=== PATIENT | female | born 1945 | race Caucasian/White ===

== ENCOUNTER 2018-06-08 10:08 | Inpatient (IN) | payer MEDICARE, OTHER ==
--- NOTE | 2018-06-08 11:11 | CT ---
CT BRAIN: 06/08/2018 PROVIDED CLINICAL HISTORY: Altered mental status. Slurred speech. COMPARISON: 07/14/2012 FINDINGS: The ventricular system appears normal in size and morphology. There is no evidence for intracranial hemorrhage or mass effect. Foci of diminished attenuation involving the cerebral white matter and po ns presumably reflect chronic microvascular ischemic change. The extracranial soft tissues and osseo us structures demonstrate no acute findings. IMPRESSION: No evidence for intracranial hemorrhage or mass effect. POS: ANNALEE
[2018-06-08 11:25] LABS: #Basophils 0.1 thou/uL (0.0-0.2); #Eosinphils 0.1 thou/uL (0.0-0.7); #Lymphocytes 2.1 thou/uL (1.20-3.40); #Monocytes 0.5 thou/uL (0.11-0.59); #Neutrophils 5.5 thou/uL (1.40-6.50); %Basophils 0.9 % (0.0-1.0); %Eosinophils 1.7 % (0.0-10.0); %Lymphocytes 25.2 % (21.0-51.0); %Monocytes 6.4 % (0.0-10.0); %Neutrophils 65.8 % (42.0-75.0); Hemoglobin 14.5 g/dL (12.0-16.0); Mean Corpuscular HGB CONC 32.4 g/dL (32.0-36.0); Mean Corpuscular Hemoglobin 29.4 pg (27.0-31.0); Mean Corpuscular Volume 90.7 fL (78.0-98.0); Mean Platelet Volume 11.6 fL (7.4-10.4); Platelet Count 142 thou/uL (130-400); RBC Distribution Width 13.2 % (11.5-14.5); Red Blood Cell (RBC) Count 4.94 mill/uL (4.20-5.40); White Blood Cell (WBC) Count 8.3 thou/uL (4.8-10.8)
[2018-06-08 11:45] LABS: Bilirubin Negative (Negative); Blood, Urine Negative (Negative); Clarity CLEAR (Clear); Glucose, Urine (Dipstick) >=1000 mg/dL (Negative); Leukocyte Negative (Negative); Nitrite Positive (Negative); Protein, Urine (Dipstick) Negative (Neg-Trace); Specific Gravity, Urine 1.029 (1.002-1.036); Urobilinogen 0.2 mg/dL (0.2-1.0)
[2018-06-08 11:47] LABS: Bacteria/HPF 4+ HPF (None Seen); Hyaline Casts/LPF 0-3 HYALINE CAST LPF (0-3 Hyaline); Pathc Cast-AUWi Flag 0.14 (0-2.49); Squamous Epithelial 0-3 HPF (0-3); WBC/HPF 0-3 HPF (0-3)
[2018-06-08 11:50] LABS: ALT (SGPT) 16 U/L (8-55); AST (SGOT) 14 U/L (5-34); Alkaline Phosphatase 79 U/L (40-150); Anion Gap 16 mmol/L (10-20); BUN (Urea Nitrogen) 10 mg/dL (9.8-20.1); Bilirubin, Total 0.4 mg/dL (0.2-1.2); Calc. Creatinine Clearance 0 mL/min (70-130); Calcium 10.7 mg/dL (7.8-10.44); Carbon Dioxide 21 mmol/L (23-31); Chloride 102 mmol/L (98-107); Estimated GFR-MDRD 59; Globulin 3.1 g/dL (2.4-3.5); Glucose 390 mg/dL (83-110); Potassium 4.4 mmol/L (3.5-5.1); Protein, Total 7.1 g/dL (6.0-8.3); Sodium 135 mmol/L (136-145)
[2018-06-08] MEDS ORDERED: cefTRIAXone\\ROCEPHIN 2 GM VIAL ONE (12:49)
[2018-06-08] MEDS ORDERED: Sodium Chloride 0.9% 100 ML ONE (12:50)
--- NOTE | 2018-06-08 18:15 | PDOC.EVN ---
Event Note - Event Note Event Note: Chart reviewed. Pt denies chest pain or weakness. Slurred speech improving. S1, S2 Lungs CTA Neuro: nonfocal except for slurred speech A/P: 1. CVA: w/u in progress
[2018-06-08] MEDS ORDERED: Ondansetron PF 4 MG/2 ML Vial IVP PRN (18:24)
[2018-06-08] MEDS ORDERED: Acetaminophen 650 MG Suppository PR PRN (18:24)
[2018-06-08] MEDS ORDERED: hydrALAZINE 20 MG/ML VIAL SLOW IVP PRN (18:26)
--- NOTE | 2018-06-08 19:47 | HP ---
CHIEF COMPLAINT: Slurred speech. HISTORY OF PRESENT ILLNESS AND REVIEW OF SYSTEMS: Ms. Cintron is a very pleasant 72-year-old woman, who was brought in by coworkers due to significantly slurred speech. It appears she has had slurred speech since Tuesday, June 05, 2018. However, it was significantly worse today. According to the patient, she did not wake up for work and was called by her coworkers, who instructed she needed to come in. According to her coworker who brought her in, the patient was at work and was witnessed to be off-balance when walking and with the slurred speech as mentioned above. The patient was not noted to have any facial drooping or weakness. No obvious unilateral extremity weakness. No complaints of any numbness on her face or anywhere else to her body. She denies experiencing any headaches. She has not had any nausea or vomiting. Denies any abdominal pain. Has not had any complaints of chest pain, palpitations, or shortness of breath. She has not had any recent fevers, chills, or night sweats. All other review of systems are negative. Upon arriving to the ED, she was noted to have significantly elevated blood pressure. Her glucose was raised at 443. She is not known to have a history of diabetes. She is known, however, to have high cholesterol and hypertension. However, the patient is noncompliant with medications. Her coworker brought in her home medications, which included a bottle of spironolactone that the patient has not been taking as well as a bottle of losartan, which is still sealed and has not been opened. It is unclear why she has not been taking her medications. Apparently, the spironolactone made her feel unwell at one point, and therefore she discontinued it on her own. She underwent a urinalysis, which showed positive nitrites, but negative ketones. Leukocyte esterase was negative, however, she had 4+ bacteria. She was started on antibiotics by Dr. Sullivan. She underwent a CT of the head, that showed no evidence for intracranial hemorrhage or mass effect. She is being admitted to the hospital for further workup and investigations including that of TIA and new onset diabetes as well as uncontrolled hypertension. PAST MEDICAL HISTORY: 1. Hypercholesterolemia. 2. Hypertension. PAST SURGICAL HISTORY: Tonsillectomy. FAMILY HISTORY: Noncontributory. SOCIAL HISTORY: The patient is normally fit and well. She functions independently. Works in a shelter. Denies any smoking or alcohol use. Denies any drug use. PHYSICAL EXAMINATION: VITAL SIGNS: Temperature 98.1, pulse 87, respirations 22, O2 saturation 97% on room air, and blood pressure 139/78. HEENT: Normocephalic and atraumatic. Pupils are equal, round, and reactive to light. Extraocular movements normal. No facial numbness or asymmetry. No tongue deviation. Facial movements normal. Speech slightly slurred, but no facial droop. NECK: Supple without lymphadenopathy. Full range of motion. Oropharynx is clear without any lesions, thrush, or ulcers. CARDIAC: Regular rate and rhythm. LUNGS: Clear to auscultation bilaterally. ABDOMEN: Soft, nontender, and nondistended with bowel sounds present. No renal angle tenderness. EXTREMITIES: No clubbing, cyanosis, or edema. Power 5/5 with sensation intact in all limbs. NEUROLOGIC: Alert and oriented x3. She does appear to be off, though not particularly confused. No cerebellar signs. No focal neurology. LABORATORY DATA: White blood count unremarkable. Sodium 135, potassium 4.4, BUN 10, creatinine 0.94, GFR 59, glucose 390, and calcium 10.7. LFTs unremarkable. TNI negative. IMAGING DATA: Brain CT, 06/08/2018. No evidence of intracranial hemorrhage or mass effect. Changes consistent with possibly chronic microvascular ischemic change. IMPRESSION AND PLAN: Ms. Cintron will be admitted to observation unit for workup and investigations for the following conditions. 1. Slurred speech. Possible transient ischemic attack. MRI of the brain requested as well as echocardiogram and carotid Doppler ultrasound. The patient is referred to neuro and stroke team. She will require a swallow assessment. Consult placed to Speech Therapy. She has been started on aspirin 81 mg and statin. 2. Hyperglycemia/possible new onset diabetes. Continue insulin sliding scale. Monitor glucose. 3. Hypertension. The patient is noncompliant with home medications. We will continue to monitor blood pressure, which is now improved. 4. Presumed urinary tract infection. The patient is started on antibiotics in the ED. Urinalysis was positive for nitrites and bacteria. Negative for ketones. Showed greater than 1000 glucose. We will continue antibiotics and await urine culture. 5. Gastrointestinal prophylaxis. 6. Venous thromboembolism prophylaxis with mechanical sequential compression devices. The patient's case was discussed with Dr. Moody, who agrees with the plan of care as described above. Job ID: [id number]
[2018-06-08] MEDS ORDERED: HumaLOG 300 UNITS/3 ML VIAL SC PRN (21:20)
[2018-06-08] MEDS ORDERED: Dextrose 50% Abboject 50 ML SYRINGE SLOW IVP PRN ×2 (21:20→21:21)
[2018-06-08] MEDS ORDERED: Dextrose 5% in Water 1,000 ML IV PRN ×2 (21:20→21:21)
--- NOTE | 2018-06-08 22:20 | ULT ---
CAROTID DUPLEX SONOGRAM: 06/08/18 HISTORY: TIA. Vascular disease. FINDINGS: RIGHT: Scattered plaque. Color and spectral doppler evaluation, peak systolic velocity of 76 cm/s, and IC to CC ratio of 1.2 suggests no hemodynamically significant stenosis within the extracranial right ICA. Antegrade flow within the vertebral artery. LEFT: Scattered plaque. Color and spectral doppler evaluation, peak systolic velocity of 89 cm/s, and IC to CC ratio of 1.1 suggests no hemodynamically significant stenosis within the extracranial left ICA. A ntegrade flow within the vertebral artery. IMPRESSION: Atherosclerosis. No sonographic evidence of significant extracranial ICA stenosis. POS: BST
[2018-06-09] MEDS: Sodium Chloride 0.9% 1,000 ML IV SCH ×2 (00:16→10:11)
[2018-06-09] MEDS: Atorvastatin Calcium 40 MG TAB PO SCH ×2 (00:17→23:05)
[2018-06-09] MEDS: Famotidine 20 MG TAB PO SCH ×3 (00:17→23:05)
[2018-06-09] MEDS: Famotidine/PF 20 mg/2ml Vial SLOW IVP SCH ×3 (00:29→23:05)
[2018-06-09 04:50] VITALS: BMI 32.9
[2018-06-09] MEDS: HumaLOG 300 UNITS/3 ML VIAL SC PRN ×3 (06:16→18:12)
[2018-06-09 06:59] LABS: ALT (SGPT) 17 U/L (8-55); AST (SGOT) 17 U/L (5-34); Albumin 3.7 g/dL (3.4-4.8); Alkaline Phosphatase 74 U/L (40-150); Anion Gap 16 mmol/L (10-20); BUN (Urea Nitrogen) 10 mg/dL (9.8-20.1); Bilirubin, Total 0.3 mg/dL (0.2-1.2); Calc. Creatinine Clearance 81 mL/min (70-130); Calcium 10.4 mg/dL (7.8-10.44); Carbon Dioxide 21 mmol/L (23-31); Cardiac Risk 7.1 (Less than 4.5); Chloride 103 mmol/L (98-107); Cholesterol 207 mg/dl (< 200 Desired); Estimated GFR-MDRD 70; Globulin 2.9 g/dL (2.4-3.5); Glucose 317 mg/dL (83-110); HDL Cholesterol 29 mg/dL (>60 Neg Risk); Protein, Total 6.6 g/dL (6.0-8.3); Sodium 136 mmol/L (136-145); Triglycerides 453 mg/dL (Less than 150)
[2018-06-09] MEDS ORDERED: Prevnar 13-Val Conj/PF 0.5 ML SYRINGE IM ONE (09:00)
[2018-06-09] MEDS ORDERED: Lorazepam 0.5 MG TAB PO ONE (09:20)
[2018-06-09 09:40] LABS: #Basophils 0.1 thou/uL (0.0-0.2); #Eosinphils 0.2 thou/uL (0.0-0.7); #Lymphocytes 2.3 thou/uL (1.20-3.40); #Monocytes 0.6 thou/uL (0.11-0.59); #Neutrophils 6.4 thou/uL (1.40-6.50); %Basophils 0.7 % (0.0-1.0); %Eosinophils 1.8 % (0.0-10.0); %Lymphocytes 23.7 % (21.0-51.0); %Monocytes 6.5 % (0.0-10.0); %Neutrophils 67.3 % (42.0-75.0); Mean Corpuscular HGB CONC 33.3 g/dL (32.0-36.0); Mean Corpuscular Hemoglobin 29.9 pg (27.0-31.0); Mean Corpuscular Volume 89.7 fL (78.0-98.0); Mean Platelet Volume 9.8 fL (7.4-10.4); Platelet Count 128 thou/uL (130-400); RBC Distribution Width 13.3 % (11.5-14.5); White Blood Cell (WBC) Count 7.7 thou/uL (4.8-10.8)
[2018-06-09] MEDS: Aspirin 81 mg Enteric Coated Tablet PO SCH (10:07)
[2018-06-09] MEDS ORDERED: Iopamidol 370 76% 100 ML VIAL ONE (10:09)
--- NOTE | 2018-06-09 11:40 | PDOC.PN ---
- Subjective Encounter Start Date: 06/09/18 Encounter Start Time: 09:15 Subjective: Patient without complaints. Still slurred speech. -: Alert and oriented. Refusing to sit up as already examed, per patient. -: Denies n/v. No headache. No dizziness. Denies any blurred vision. No CP/SOB - Objective Vital Signs & Weight: Vital Signs (12 hours) Temp Pulse Resp BP Pulse Ox 06/09/18 07:00 98.2 F 72 20 134/62 95 06/09/18 03:17 97.6 F 74 16 136/69 95 06/09/18 00:00 98.6 F 71 19 119/71 96 Weight Weight 179 lb 14.4 oz Result Diagrams: 06/09/18 09:18 06/09/18 06:21 Additional Labs: Accuchecks 06/09/18 06/09/18 07:29 05:44 POC Glucose 304 H 329 H Phys Exam - Physical Examination Constitutional: NAD HEENT: PERRLA, oral pharynx no lesions Neck: supple, full ROM Respiratory: clear to auscultation bilateral Cardiovascular: RRR Gastrointestinal: soft, non-tender, no distention, positive bowel sounds Musculoskeletal: no edema Neurological: normal sensation, moves all 4 limbs Psychiatric: A&O x 3 Skin: no rash, normal turgor Dx/Plan (1) TIA (transient ischemic attack) Code(s): G45.9 - TRANSIENT CEREBRAL ISCHEMIC ATTACK, UNSPECIFIED Status: Acute (2) Slurred speech Code(s): R47.81 - SLURRED SPEECH Status: Acute (3) Hyperglycemia Code(s): R73.9 - HYPERGLYCEMIA, UNSPECIFIED Status: Acute (4) Hypertension Code(s): I10 - ESSENTIAL (PRIMARY) HYPERTENSION Status: Chronic (5) Hyperlipidemia Code(s): E78.5 - HYPERLIPIDEMIA, UNSPECIFIED Status: Chronic - Plan cont current plan of care Patient awaiting MRI and Echo results. -: UCx: Presumptive E.Coli, awaiting sensitivities. Will start Rocephin -: Awaiting Neuro -: Metformin 500 mg BID. Monitor glucose. Continue sliding scale. Check HgbA1c -: Discussed with Dr. Dumont who agrees with plan above. ADDENDUM: MRI Brain: Showed acute lacunar ischemia of brainstem. Dr. Solis has seen patient and aware. CTA Head has been requested.
--- NOTE | 2018-06-09 12:31 | MRI ---
MRI BRAIN NONCONTRAST: DATE: 06/09/2018. HISTORY: A 72-year-old female with TIA, dysarthria. COMPARISON: No prior brain MRIs. FINDINGS: There is an approximately 0.9 x 0.6 cm moderately T2 hyperintense intraaxial focus, with strongly res tricted diffusion, in the midbrain, at midline and slightly to the right of midline, representing an acute lacunar infarction of the brainstem. Ventricles are normal in size and configuration. No mass effect or midline shift. Mild to moderate chronic ischemic white matter changes of centrum semiovale and arteaga radiata, and eileen. No evidence of recent intraaxial hemorrhage. No extraaxial fluid collection. IMPRESSION: 1. Brainstem acute lacunar infarction at the midbrain. 2. Mild to moderate chronic ischemic white matter changes. SALVADOR Johnson POS: FAITH
--- NOTE | 2018-06-09 16:36 | CT ---
NONCONTRAST HEAD CT CT ANGIOGRAM OF THE HEAD CT ANGIOGRAM OF THE NECK 06/09/18 HISTORY: Acute lacunar infarct in the brainstem, mid brain. COMPARISON: None. TECHNIQUE: Noncontrast head CT is performed from skull base to skull vertex. CT angiogram of the head and neck a re performed in the axial plane. Three dimensional reformatted images are submitted for interpretatio n. FINDINGS: NONCONTRAST HEAD CT: No parenchymal hemorrhage. No extra-axial hematoma. No midline shift. Basilar cisterns are patent. Br ain volume, age appropriate. Cortical celis-white matter differentiation is preserved. No evidence of hydrocephalus. Note is made of hyperostosis frontalis interna. There is no pathologic enhancement in the brain parenchyma. Bilateral ocular lenses are appropriately located. Both globes are intact. Retrobulbar fat is preserv ed. Symmetric attenuation of the optic nerves and ocular rectus muscles. Limited evaluation of the or al cavity due to dental amalgam artifact. Midline fatty raphae of the tongue is preserved. Epiglottis has a normal caliber. Pre-epiglottic fat is preserved. There is a hyperdense lesion in the superficial aspect in the right parotid gland, measuring 1.8 x 1. 3 cm. Intraparotid lesion is suspected. Nonemergent soft tissue neck MRI with and without contrast is recommended. The left parotid gland and submandibular glands as well as the thyroid gland are unrema rkable. Symmetric attenuation of the sternocleidomastoid muscles. There are scattered nonspecific, nonenlarge d mild lateral soft tissue neck lymph nodes. No evidence of high grade central canal stenosis or high grade foraminal narrowing. Cervical spine ve rtebral body height is maintained. No fracture. There appears to be a hemangioma associated with a T1 vertebral body. Upper mediastinum and lung apices are unremarkable for acute pathology. Nonspecific patchy opacities in the visualized lung apices may represent edema. CT ANGIOGRAM: The visualized aortic arch has an appropriate enhancement and luminal diameter. There is a common bridget gin of both carotid arteries. The right carotid artery has appropriate enhancement and luminal diamet er. No significant stenosis based upon NASCET criteria. The left carotid artery has appropriate enhan cement and luminal diameter. No significant stenosis based upon NASCET criteria. Both vertebral arteries are patent throughout their course in the neck. Vertebral arteries are essent ially codominant. Both subclavian arteries are patent. CT ANGIOGRAM OF THE HEAD: There is atherosclerosis involving both cavernous segments. No significant stenosis of either intracr anial internal carotid artery. ANTERIOR CIRCULATION: There is appropriate enhancement and luminal diameter of both A1 and M1 segments. Proximal A2 segment s and proximal MCA branches are symmetric. POSTERIOR CIRCULATION: Both intracranial vertebral arteries are patent. Both vertebral arteries supply normal appearing basi lar artery. The left P1 segment has appropriate enhancement and luminal diameter. The right POLISHER DIAL has a origin. No stenosis. IMPRESSION: 1. No evidence of hemodynamically significant stenosis based upon NASCET criteria, with regards to the cervical carotid arteries. 2. No significant stenosis at the level of the [place] of [place]. POS: FAITH
[2018-06-09] MEDS: metFORMIN 500 MG TAB PO SCH (18:12)
[2018-06-09] MEDS: cefTRIAXone\\ROCEPHIN 1 GM in Sodium Chloride 0.9% 100 ML IVPB SCH (18:12)
[2018-06-10] MEDS: Sodium Chloride 0.9% 1,000 ML IV SCH ×2 (01:01→05:10)
--- NOTE | 2018-06-10 02:08 | CON ---
DATE OF CONSULTATION: 06/09/2018 CHIEF COMPLAINT: Slurred speech. HISTORY OF PRESENT ILLNESS: The patient was in the room and her friend from work was also with her and was able to give some information. The patient reports she was in her usual state of health and is very active normally and she was told her speech was slurred and she has had these symptoms starting about two days ago and she presented to the ER yesterday for slurred speech. On Tuesday, one of her co-workers noted that she had slurred speech and on she was running late to work and they called her and told her that her speech sounded worse and they asked her to go to the ER. The patient did not have any symptoms such as weakness or numbness. Last time she had any neurological issues was vision problems since then and also during , she has had dizziness. She attributes her vision problems to cataracts and is planning to get those removed soon. PREVIOUS MEDICAL HISTORY: The patient reports she is quite healthy normally and has hyperlipidemia and hypertension and was recently thought to have had diabetes, but no confirmed history of diabetes. ALLERGIES: SHE IS ALLERGIC TO PENICILLIN. PREVIOUS SURGICAL HISTORY: She has had a tonsillectomy and that is the only surgery she ever had. FAMILY HISTORY: She has 4 brothers. Mother at age 85 due to old age. Father at 63 and he was a smoker and had COPD. 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 REVIEW OF SYSTEMS: PULMONARY: Negative for shortness of breath. GI: Negative for diarrhea or reflux or stomach pain. GENITOURINARY: Negative for bladder dysfunction. NEUROLOGIC: Positive for slurred speech and dizziness. HEMATOLOGIC: Negative for any bleeding diatheses. PSYCHIATRIC: Negative for anxiety or depression. CARDIAC: Negative for chest pain or palpitations. LABORATORY DATA: Her lab workup showed white count 7.7, hemoglobin 14, hematocrit 42.1, platelets 128. Chemistry: Sodium 136, potassium 4, chloride 103, bicarb 21, anion gap 16, BUN 10, creatinine 0.81, glucose 238, triglycerides 453, cholesterol 207, alkaline phosphatase 74, ALT 17, AST 17, and total bilirubin is 10.4. MRI of the brain showed a brainstem acute lacunar infarction at the midbrain at the midline and slightly to the right of midline. She also has moderate chronic white matter ischemic changes. I requested a CT angiogram and a CT angiogram was completed and there was no evidence of hemodynamically significant stenosis based on NASCET criteria. No stenosis at the level of the elem of [place]. No intracranial abnormalities either. Echocardiogram showed ejection fraction is at 50-60 percent and normal size of left atrium. The ejection fraction is 55-60 percent. Normal-sized left atrium. Carotid Dopplers were negative for any stenotic lesions. PHYSICAL EXAMINATION: VITAL SIGNS: Blood pressure 134/62, temperature 98.2, pulse 72. GENERAL APPEARANCE: Well-built, well-nourished lady, slightly overweight. CHEST: Clear vesicular breathing. CARDIOVASCULAR: S1, S2 heard. No murmurs. ABDOMEN: Soft, nontender. No organomegaly noted. NEUROLOGIC: Higher intellectual functions, appropriate conversation. She is oriented to time, place, and person. Cranial nerve examination, 2-12 normal extraocular movements. Pupils reactive to light and symmetric. Normal sensation of face bilaterally. No facial asymmetry noted. Tongue midline. No atrophy noted. Normal elevation of palate. Normal hearing to finger rub bilaterally. Motor examination; bulk normal tone, normal strength 5/5 throughout in upper and lower extremities in iliopsoas, hamstrings, quadriceps, ankle dorsiflexion, plantar flexion, deltoid, biceps, triceps, wrist extension, flexion, finger extension, flexion bilaterally. Deep tendon reflexes were 1+ throughout, but the patient was tensed. Sensory exam normal to touch and proprioception. Cerebellar; normal [id number], [id number]. Gait examination, she limps with her left leg and reported problems with her left knee. She had slightly wide-based gait. IMPRESSION: The patient is a 72-year-old lady with hypertension, hypercholesterolemia, and she was not on aspirin at home on a regular basis and she was also diagnosed this admission with hyperglycemia and possible early diabetes. She comes in with a history of slurred speech and no motor dysfunction or numbness. She has vision problems due to cataracts. Her examination shows limping of her gait and slightly wide-based gait. Rest of her neurological exam is normal. She has very mild slurred speech. Clinical history and examination is most consistent with dysarthria due to possibly resulting from the brainstem ischemia. I requested CT angiogram, which did not show any vaso-occlusive disease of the central nervous system. At this time, she remains stable. TREATMENT PLAN AND RECOMMENDATION: I suggest that she be on aspirin and statin on a daily basis for stroke prophylaxis. I will see her as needed. At this time, I do think if she remains stable and her hyperglycemia is corrected, she is stable from a neurological standpoint for discharge over the weekend. Please call, if you have any further questions. Job ID: [id number]
[2018-06-10] MEDS: HumaLOG 300 UNITS/3 ML VIAL SC PRN ×3 (05:18→12:19)
[2018-06-10 05:33] LABS: #Eosinphils 0.2 thou/uL (0.0-0.7); #Lymphocytes 2.3 thou/uL (1.20-3.40); #Monocytes 0.5 thou/uL (0.11-0.59); #Neutrophils 5.4 thou/uL (1.40-6.50); %Basophils 0.2 % (0.0-1.0); %Eosinophils 1.8 % (0.0-10.0); %Lymphocytes 26.9 % (21.0-51.0); %Monocytes 6.4 % (0.0-10.0); %Neutrophils 64.6 % (42.0-75.0); Mean Corpuscular Hemoglobin 29.9 pg (27.0-31.0); Mean Corpuscular Volume 90.6 fL (78.0-98.0); Mean Platelet Volume 11.8 fL (7.4-10.4); Platelet Count 122 thou/uL (130-400); RBC Distribution Width 13.3 % (11.5-14.5); Red Blood Cell (RBC) Count 4.36 mill/uL (4.20-5.40); White Blood Cell (WBC) Count 8.4 thou/uL (4.8-10.8)
[2018-06-10 05:37] LABS: Hemoglobin A1c 13.3 % (4.0-6.0)
[2018-06-10 05:53] LABS: ALT (SGPT) 14 U/L (8-55); AST (SGOT) 10 U/L (5-34); Albumin 3.5 g/dL (3.4-4.8); Alkaline Phosphatase 68 U/L (40-150); Anion Gap 14 mmol/L (10-20); BUN (Urea Nitrogen) 9 mg/dL (9.8-20.1); Bilirubin, Total 0.5 mg/dL (0.2-1.2); Calc. Creatinine Clearance 90 mL/min (70-130); Carbon Dioxide 21 mmol/L (23-31); Chloride 107 mmol/L (98-107); Estimated GFR-MDRD 78; Globulin 2.7 g/dL (2.4-3.5); Glucose 263 mg/dL (83-110); Potassium 3.9 mmol/L (3.5-5.1); Protein, Total 6.2 g/dL (6.0-8.3); Sodium 138 mmol/L (136-145)
[2018-06-10] MEDS: metFORMIN 500 MG TAB PO SCH ×2 (09:06→17:43)
[2018-06-10] MEDS: Famotidine 20 MG TAB PO SCH ×2 (09:06→20:35)
[2018-06-10] MEDS: Aspirin 81 mg Enteric Coated Tablet PO SCH (09:06)
[2018-06-10] MEDS: Famotidine/PF 20 mg/2ml Vial SLOW IVP SCH ×2 (09:07→20:35)
--- NOTE | 2018-06-10 14:48 | PDOC.EVN ---
Event Note - Event Note Event Note: Long discussion with the patient, her family and friends. Discussed the stroke diagnosis, dm, htn. Discussed PT recs. She is getting better, but continues to have some dysarthria. She is now completely willing to go to [facility] as recommended. She now understands the need for managing her diet and monitoring her blood sugars and blood pressure. Explained that the BP and DM need to be managed over time with compliance with meds and diet and follow up with PCP. All of her questions and her families questions were addressed. Reviewed with Rachelle Johnson.
[2018-06-10] MEDS: cefTRIAXone\\ROCEPHIN 1 GM in Sodium Chloride 0.9% 100 ML IVPB SCH (17:43)
--- NOTE | 2018-06-10 18:37 | PDOC.PN ---
- Subjective Encounter Start Date: 06/10/18 Encounter Start Time: 08:24 Subjective: Patient continues with abnormal speech. Denies any complaints. -: No headaches, dizziness. Has not had any CP/SOB. No n/v. -: Tolerating oral intake. No abdominal pain. Afebrile. - Objective Vital Signs & Weight: Vital Signs (12 hours) Temp Pulse Pulse Resp BP BP Pulse Ox 06/10/18 16:00 99.0 F 71 20 106/76 94 L 06/10/18 11:50 75 126/85 06/10/18 11:22 98.3 F 75 20 133/81 96 06/10/18 07:56 98.4 F 65 18 92/55 L 94 L Weight Weight 179 lb 14.4 oz I&O: 06/09/18 06/10/18 06/11/18 06:59 06:59 06:59 Intake Total 1706 2570 Balance 1706 2570 Result Diagrams: 06/10/18 05:21 06/10/18 05:21 Additional Labs: Accuchecks 06/10/18 06/10/18 06/10/18 16:45 11:15 08:05 POC Glucose 140 H 262 H 239 H 06/10/18 06/10/18 06/09/18 05:18 01:12 23:16 POC Glucose 253 H 234 H 218 H Phys Exam - Physical Examination Constitutional: NAD HEENT: PERRLA, moist MMs, sclera anicteric, oral pharynx no lesions Neck: no nodes, supple, full ROM Respiratory: clear to auscultation bilateral Cardiovascular: RRR Gastrointestinal: soft, non-tender, no distention, positive bowel sounds Musculoskeletal: no edema, pulses present Neurological: normal sensation, moves all 4 limbs Psychiatric: A&O x 3 Skin: no rash Dx/Plan (1) TIA (transient ischemic attack) Code(s): G45.9 - TRANSIENT CEREBRAL ISCHEMIC ATTACK, UNSPECIFIED Status: Acute (2) Slurred speech Code(s): R47.81 - SLURRED SPEECH Status: Acute (3) Hyperglycemia Code(s): R73.9 - HYPERGLYCEMIA, UNSPECIFIED Status: Acute (4) Hypertension Code(s): I10 - ESSENTIAL (PRIMARY) HYPERTENSION Status: Chronic (5) Hyperlipidemia Code(s): E78.5 - HYPERLIPIDEMIA, UNSPECIFIED Status: Chronic - Plan cont current plan of care, plan discussed w/ family, continue antibiotics, PT/OT Receiving Rocephin for UTI (e.coli-pansensitive). -: Will change to PO Levaquin. -: Metformin 500 mg BID for new onset diabetes. Monitor glucose QACHS. -: Continue anti-hypertensives. Monitor BP. -: Rehab screening requested. * .
[2018-06-10] MEDS: Atorvastatin Calcium 40 MG TAB PO SCH (20:35)
[2018-06-11 05:43] LABS: ALT (SGPT) 16 U/L (8-55); AST (SGOT) 13 U/L (5-34); Albumin 3.4 g/dL (3.4-4.8); Alkaline Phosphatase 52 U/L (40-150); Anion Gap 14 mmol/L (10-20); BUN (Urea Nitrogen) 7 mg/dL (9.8-20.1); Bilirubin, Total 0.4 mg/dL (0.2-1.2); Calc. Creatinine Clearance 94 mL/min (70-130); Calcium 9.7 mg/dL (7.8-10.44); Carbon Dioxide 19 mmol/L (23-31); Chloride 109 mmol/L (98-107); Estimated GFR-MDRD 82; Globulin 2.5 g/dL (2.4-3.5); Glucose 200 mg/dL (83-110); Potassium 3.8 mmol/L (3.5-5.1); Protein, Total 5.9 g/dL (6.0-8.3); Sodium 138 mmol/L (136-145)
[2018-06-11] MEDS: HumaLOG 300 UNITS/3 ML VIAL SC PRN ×2 (06:12→12:51)
[2018-06-11 06:28] LABS: #Eosinphils 0.2 thou/uL (0.0-0.7); #Lymphocytes 2.9 thou/uL (1.20-3.40); #Monocytes 0.4 thou/uL (0.11-0.59); #Neutrophils 3.7 thou/uL (1.40-6.50); %Basophils 0.3 % (0.0-1.0); %Eosinophils 2.9 % (0.0-10.0); %Lymphocytes 39.7 % (21.0-51.0); %Monocytes 5.9 % (0.0-10.0); %Neutrophils 51.2 % (42.0-75.0); Hemoglobin 12.9 g/dL (12.0-16.0); Mean Corpuscular HGB CONC 33.3 g/dL (32.0-36.0); Mean Corpuscular Hemoglobin 30.9 pg (27.0-31.0); Mean Corpuscular Volume 92.8 fL (78.0-98.0); Mean Platelet Volume 11.8 fL (7.4-10.4); Platelet Count 110 thou/uL (130-400); RBC Distribution Width 13.1 % (11.5-14.5); Red Blood Cell (RBC) Count 4.18 mill/uL (4.20-5.40); White Blood Cell (WBC) Count 7.3 thou/uL (4.8-10.8)
[2018-06-11] MEDS: Aspirin 81 mg Enteric Coated Tablet PO SCH (09:12)
[2018-06-11] MEDS: Famotidine/PF 20 mg/2ml Vial SLOW IVP SCH (09:12)
[2018-06-11] MEDS: Famotidine 20 MG TAB PO SCH ×2 (09:12→21:17)
[2018-06-11] MEDS: metFORMIN 500 MG TAB PO SCH ×2 (09:12→18:03)
[2018-06-11] MEDS ORDERED: Melatonin 3 MG TAB PO PRN (13:08)
[2018-06-11] MEDS: Atorvastatin Calcium 40 MG TAB PO SCH (21:17)
[2018-06-11] MEDS: Insulin Glargine 5 UNITS in Pre-Filled Syringe SC SCH (21:17)
[2018-06-12] MEDS: HumaLOG 300 UNITS/3 ML VIAL SC PRN ×2 (05:15→11:48)
[2018-06-12] MEDS: Ondansetron ODT 4 MG TAB PO PRN ×2 (06:10→11:48)
--- NOTE | 2018-06-12 07:24 | PDOC.PN ---
- Subjective Encounter Start Date: 06/12/18 Encounter Start Time: 08:30 Subjective: Patient without complaints. Slurred speech persistent. She thinks she is -: walking ok, but per PT and her family she is unsteady on feet. Needs rehab -: and patient agreeable. - Objective MAR Reviewed: Yes Vital Signs & Weight: Vital Signs (12 hours) Temp Pulse Resp BP Pulse Ox 06/12/18 04:00 98.1 F 70 18 123/51 L 99 06/11/18 20:50 95 06/11/18 20:00 99.0 F 73 18 111/63 95 Weight Weight 179 lb 14.4 oz I&O: 06/11/18 06/12/18 06/13/18 06:59 06:59 06:59 Intake Total 2930 550 Balance 2930 550 Result Diagrams: 06/11/18 05:01 06/11/18 05:01 Additional Labs: Accuchecks 06/12/18 06/11/18 06/11/18 05:14 21:14 16:46 POC Glucose 190 H 161 H 100 06/11/18 11:08 POC Glucose 227 H Phys Exam - Physical Examination Constitutional: NAD HEENT: moist MMs Respiratory: no wheezing, no rales, no rhonchi Cardiovascular: RRR, no significant murmur Gastrointestinal: soft, positive bowel sounds Musculoskeletal: no edema Neurological: moves all 4 limbs Psychiatric: normal affect, A&O x 3 Dx/Plan (1) Brainstem stroke Code(s): I63.9 - CEREBRAL INFARCTION, UNSPECIFIED Status: Acute Comment: Positive MRI, on ASA, Statin (2) Diabetes mellitus type 2 in obese Code(s): E11.69 - TYPE 2 DIABETES MELLITUS WITH OTHER SPECIFIED COMPLICATION; E66.9 - OBESITY, UNSPECIFIED Status: Acute Comment: New Dx, HbA1c 13, started on Metformin with BS in 100-200 currently. Patient with upset stomach since started. Will decrease Metformin to daily for first week until tolerating it better. Start sulfonourea. (3) Hyperlipidemia Code(s): E78.5 - HYPERLIPIDEMIA, UNSPECIFIED Status: Chronic Comment: on statin (4) Hypertension Code(s): I10 - ESSENTIAL (PRIMARY) HYPERTENSION Status: Chronic Qualifiers: Hypertension type: essential hypertension Qualified Code(s): I10 - Essential (primary) hypertension Comment: well controlled (5) UTI (urinary tract infection) Status: Acute Qualifiers: Urinary tract infection type: acute cystitis Comment: UCx with pansensitive E. coli. On Levaquin. - Plan cont current plan of care, continue antibiotics, PT/OT rehab screen * . - Discharge Day Encounter end time: 08:40
[2018-06-12] MEDS: Aspirin 81 mg Enteric Coated Tablet PO SCH (08:18)
[2018-06-12] MEDS: metFORMIN 500 MG TAB PO SCH (08:18)
[2018-06-12] MEDS: Famotidine 20 MG TAB PO SCH ×2 (08:19→22:12)
[2018-06-12] MEDS: Acetaminophen 325 MG TAB PO PRN (08:19)
[2018-06-12] MEDS: Atorvastatin Calcium 40 MG TAB PO SCH (22:12)
[2018-06-12] MEDS: Insulin Glargine 5 UNITS in Pre-Filled Syringe SC SCH (22:12)
--- NOTE | 2018-06-13 07:14 | PDOC.PN ---
- Subjective Encounter Start Date: 06/13/18 Encounter Start Time: 09:40 Subjective: No changes, persistent slurred speech. Awaiting insurance auth for -: rehab. - Objective MAR Reviewed: Yes Vital Signs & Weight: Vital Signs (12 hours) Temp Pulse Resp BP Pulse Ox 06/13/18 04:00 98.3 F 68 19 130/72 95 06/13/18 00:00 99.1 F 66 19 112/57 L 94 L 06/12/18 20:00 98.0 F 66 19 107/66 94 L Weight Weight 179 lb 14.4 oz I&O: 06/12/18 06/13/18 06/14/18 06:59 06:59 06:59 Intake Total 550 360 Balance 550 360 Result Diagrams: 06/11/18 05:01 06/11/18 05:01 Additional Labs: Accuchecks 06/13/18 06/12/18 06/12/18 05:50 20:12 16:39 POC Glucose 166 H 151 H 138 H 06/12/18 11:10 POC Glucose 205 H Phys Exam - Physical Examination Constitutional: NAD HEENT: moist MMs Respiratory: no wheezing, no rales, no rhonchi Cardiovascular: RRR, no significant murmur Gastrointestinal: soft, positive bowel sounds Musculoskeletal: no edema Neurological: non-focal Psychiatric: normal affect, A&O x 3 Dx/Plan (1) Brainstem stroke Code(s): I63.9 - CEREBRAL INFARCTION, UNSPECIFIED Status: Acute Comment: Positive MRI, on ASA, Statin (2) Diabetes mellitus type 2 in obese Code(s): E11.69 - TYPE 2 DIABETES MELLITUS WITH OTHER SPECIFIED COMPLICATION; E66.9 - OBESITY, UNSPECIFIED Status: Acute Comment: New Dx, HbA1c 13, started on Metformin with BS in 100-200 currently. Patient with upset stomach since started. Will decrease Metformin to daily for first week until tolerating it better. Start sulfonourea. (3) Hyperlipidemia Code(s): E78.5 - HYPERLIPIDEMIA, UNSPECIFIED Status: Chronic Comment: on statin (4) Hypertension Code(s): I10 - ESSENTIAL (PRIMARY) HYPERTENSION Status: Chronic Qualifiers: Hypertension type: essential hypertension Qualified Code(s): I10 - Essential (primary) hypertension Comment: well controlled (5) UTI (urinary tract infection) Status: Acute Qualifiers: Urinary tract infection type: acute cystitis Comment: UCx with pansensitive E. coli. On Levaquin. - Plan cont current plan of care, PT/OT Awaiting insurance approval for inpatient rehab * . - Discharge Day Encounter end time: 09:50
[2018-06-13] MEDS ORDERED: metFORMIN 500 MG TAB PO SCH (08:00)
[2018-06-13] MEDS: Aspirin 81 mg Enteric Coated Tablet PO SCH (09:28)
[2018-06-13] MEDS: Famotidine 20 MG TAB PO SCH ×2 (09:28→21:55)
[2018-06-13] MEDS: HumaLOG 300 UNITS/3 ML VIAL SC PRN (12:34)
[2018-06-13] MEDS: Insulin Glargine 5 UNITS in Pre-Filled Syringe SC SCH (21:55)
[2018-06-13] MEDS: Atorvastatin Calcium 40 MG TAB PO SCH (21:55)
[2018-06-13] MEDS: Ondansetron ODT 4 MG TAB PO PRN (21:55)
[2018-06-14] MEDS: Acetaminophen 325 MG TAB PO PRN ×2 (00:33→11:27)
--- NOTE | 2018-06-14 07:54 | PDOC.PN ---
- Subjective Encounter Start Date: 06/14/18 Encounter Start Time: 08:50 Subjective: Patient with continued leg pain at night. Upset stomach persisting yesterda -: so had to completely stop the Metforming. - Objective MAR Reviewed: Yes Vital Signs & Weight: Vital Signs (12 hours) Temp Pulse Resp BP Pulse Ox 06/14/18 04:00 98.1 F 76 20 109/57 L 94 L 06/14/18 00:00 99.3 F 73 19 133/69 94 L 06/13/18 20:00 97.7 F 64 18 111/65 92 L Weight Weight 179 lb 14.4 oz I&O: 06/13/18 06/14/18 06/15/18 06:59 06:59 06:59 Intake Total 360 580 Balance 360 580 Result Diagrams: 06/11/18 05:01 06/11/18 05:01 Additional Labs: Accuchecks 06/14/18 06/13/18 06/13/18 06:16 20:05 17:05 POC Glucose 123 H 126 H 120 H 06/13/18 10:37 POC Glucose 205 H Phys Exam - Physical Examination Constitutional: NAD HEENT: moist MMs Respiratory: no wheezing, no rales, no rhonchi Cardiovascular: RRR, no significant murmur Gastrointestinal: soft, positive bowel sounds Musculoskeletal: no edema slurred speech a little better this AM Psychiatric: normal affect, A&O x 3 Dx/Plan (1) Brainstem stroke Code(s): I63.9 - CEREBRAL INFARCTION, UNSPECIFIED Status: Acute Comment: Positive MRI, on ASA, Statin (2) Diabetes mellitus type 2 in obese Code(s): E11.69 - TYPE 2 DIABETES MELLITUS WITH OTHER SPECIFIED COMPLICATION; E66.9 - OBESITY, UNSPECIFIED Status: Acute Comment: New Dx, HbA1c 13, started on Metformin with BS in 100-200 currently. Patient with upset stomach since started. Metformin had to be d/c'd completely. Start sulfonourea. (3) Hyperlipidemia Code(s): E78.5 - HYPERLIPIDEMIA, UNSPECIFIED Status: Chronic Comment: on statin (4) Hypertension Code(s): I10 - ESSENTIAL (PRIMARY) HYPERTENSION Status: Chronic Qualifiers: Hypertension type: essential hypertension Qualified Code(s): I10 - Essential (primary) hypertension Comment: well controlled (5) UTI (urinary tract infection) Status: Acute Qualifiers: Urinary tract infection type: acute cystitis Comment: UCx with pansensitive E. coli. On Levaquin. (6) Leg pain, bilateral Code(s): M79.604 - PAIN IN RIGHT LEG; M79.605 - PAIN IN LEFT LEG Status: Acute Comment: likely diabetic neuropathy vs. stroke effect, will try dose of Gabapentin before bed - Plan cont current plan of care, PT/OT, DVT proph w/SCDs Awaiting rehab, FMLA paperwork filled out. * . - Discharge Day Encounter end time: 09:00
[2018-06-14] MEDS: Famotidine 20 MG TAB PO SCH ×2 (08:34→21:12)
[2018-06-14] MEDS: Aspirin 81 mg Enteric Coated Tablet PO SCH (08:35)
[2018-06-14] MEDS: HumaLOG 300 UNITS/3 ML VIAL SC PRN (11:27)
[2018-06-14] MEDS ORDERED: Gabapentin 300 MG CAP PO SCH (21:00)
[2018-06-14] MEDS: Insulin Glargine 5 UNITS in Pre-Filled Syringe SC SCH (21:11)
[2018-06-14] MEDS: Atorvastatin Calcium 40 MG TAB PO SCH (21:12)
--- NOTE | 2018-06-15 07:55 | PDOC.PN ---
- Subjective Encounter Start Date: 06/15/18 Encounter Start Time: 09:40 Subjective: Patient with some labile mood today. Was happy early in AM, family left -: room and returned in 15 min and she was worrying about job, crying. - Objective MAR Reviewed: Yes Vital Signs & Weight: Vital Signs (12 hours) Temp Pulse Resp BP Pulse Ox 06/15/18 07:47 98.6 F 64 18 115/56 L 94 L 06/15/18 04:00 97.5 F L 60 19 110/56 L 94 L 06/15/18 00:00 98.4 F 76 20 125/62 95 06/14/18 20:00 98.0 F 65 19 101/57 L 96 Weight Weight 179 lb 14.4 oz I&O: 06/14/18 06/15/18 06/16/18 06:59 06:59 06:59 Intake Total 580 650 Balance 580 650 Result Diagrams: 06/11/18 05:01 06/11/18 05:01 Additional Labs: Accuchecks 06/15/18 06/14/18 06/14/18 05:51 19:46 16:40 POC Glucose 141 H 118 H 146 H 06/14/18 10:43 POC Glucose 216 H Phys Exam - Physical Examination Constitutional: NAD HEENT: moist MMs Respiratory: no wheezing, no rales, no rhonchi Cardiovascular: RRR, no significant murmur Gastrointestinal: soft, positive bowel sounds Musculoskeletal: no edema Neurological: moves all 4 limbs slurred speech mildly improved Psychiatric: A&O x 3 Deviation from normal: a bit tearful Dx/Plan (1) Brainstem stroke Code(s): I63.9 - CEREBRAL INFARCTION, UNSPECIFIED Status: Acute Comment: Positive MRI, on ASA, Statin (2) Diabetes mellitus type 2 in obese Code(s): E11.69 - TYPE 2 DIABETES MELLITUS WITH OTHER SPECIFIED COMPLICATION; E66.9 - OBESITY, UNSPECIFIED Status: Acute Comment: New Dx, HbA1c 13, started on Metformin with BS in 100-200 currently. Patient with upset stomach since started. Metformin had to be d/c'd completely. Start sulfonourea. (3) Hyperlipidemia Code(s): E78.5 - HYPERLIPIDEMIA, UNSPECIFIED Status: Chronic Comment: on statin (4) Hypertension Code(s): I10 - ESSENTIAL (PRIMARY) HYPERTENSION Status: Chronic Qualifiers: Hypertension type: essential hypertension Qualified Code(s): I10 - Essential (primary) hypertension Comment: well controlled (5) UTI (urinary tract infection) Status: Acute Qualifiers: Urinary tract infection type: acute cystitis Comment: UCx with pansensitive E. coli. On Levaquin. (6) Leg pain, bilateral Code(s): M79.604 - PAIN IN RIGHT LEG; M79.605 - PAIN IN LEFT LEG Status: Acute Comment: likely diabetic neuropathy vs. stroke effect, will try dose of Gabapentin before bed (7) Depressed mood Code(s): F32.9 - MAJOR DEPRESSIVE DISORDER, SINGLE EPISODE, UNSPECIFIED Status : Acute Comment: understandable reaction to stroke and worries about future. Family support and reassurance. May need antidepressant or mood stabilizer if symptoms worsen or are prolonged. - Plan cont current plan of care, PT/OT awaiting insurance approval for rehab * . - Discharge Day Encounter end time: 09:50
[2018-06-15] MEDS: Aspirin 81 mg Enteric Coated Tablet PO SCH (09:36)
[2018-06-15] MEDS: Famotidine 20 MG TAB PO SCH (09:36)
[2018-06-15] MEDS: HumaLOG 300 UNITS/3 ML VIAL SC PRN (13:18)
[2018-06-15 15:57] VITALS: BP 118/57; TEMP 98.1
--- NOTE | 2018-06-16 01:43 | DIS ---
DATE OF ADMISSION: 06/08/2018 DATE OF DISCHARGE: 06/15/2018 PRIMARY CARE PHYSICIAN: Darrell James. REASON FOR ADMISSION: Slurred speech. DIAGNOSES AT DISCHARGE: 1. Ischemic stroke of the brainstem. 2. Diabetes mellitus type 2, new diagnosis. 3. Hyperlipidemia. 4. Hypertension. 5. Urinary tract infection, resolved. 6. Leg pain, likely peripheral neuropathy. PROCEDURES: 1. CT of the brain showing no evidence for intracranial hemorrhage or mass effect. 2. Carotid Doppler ultrasound showing atherosclerosis with no significant extracranial internal carotid artery stenosis. 3. MRI showing brainstem acute lacunar infarction in the midbrain and [id number] chronic ischemic white matter changes. 4. CT angio of the head and neck with and without contrast showing no evidence of a hemodynamically significant stenosis, either in the carotid arteries or in the [place]. PROCEDURE: Echocardiogram showing ejection fraction of 55% to 60%, and no thrombus noted in the cardiac chambers. CONSULTATIONS: Neurology, Amanda Solis MD SUMMARY OF HOSPITAL COURSE: This is a 72-year-old white female brought in by coworkers due to significantly slurred speech that started 2 to 3 days before admission, but got significantly worse today on admission. She was also noted to be a little off balance walking and had some trouble remembering how to get to work in the morning. The patient was noted to have significantly elevated blood pressure and blood sugar in the 400s when she arrived. She was also noted to have a possible UTI and started on antibiotics. CT of the head was done as above. The patient was admitted to the hospital. She had ultrasounds, CTs, and MRIs as above. Dr. Solis with Neurology was consulted, recommended aspirin and statin, and then discharged to rehab. The patient did well during hospitalization. She was able to ambulate with physical therapy with some unsteadiness to her gait. Her slurred speech and trouble of word finding improved significantly during the hospitalization, although she still have a little bit of slurring to her speech on the day of discharge. The patient was eventually accepted to rehab. During hospitalization, the patient was diagnosed with diabetes mellitus type 2. This is a new diagnosis for her. Her hemoglobin A1c was elevated at 13.3. She was started on metformin. However, she has some chronic intermittent diarrhea and this actually made it significantly worse. She did not tolerate it, so she was switched to sulfonylureas with control of blood sugars into the mid 100s to occasionally spike into the 200s range. The patient also had elevated total cholesterol of 200 and elevated triglycerides in the 400. She was started on statin. The patient completed a course of Levaquin during her hospitalization for UTI that grew back E coli that was sensitive. She was doing well on the day of discharge and was discharged to inpatient rehabilitation at [facility]. DISCHARGE MANAGEMENT: Discharged to inpatient rehabilitation. ACTIVITY: As tolerated. DIET: Diabetic healthy heart diet. THERAPIES: Occupational, physical, and speech therapy. FOLLOWUP: Follow up with primary care physician after discharge from rehab to finish completing her [facility] paperwork. I did fill out the initial part here. DISCHARGE MEDICATIONS: 1. Aspirin 81 mg daily. 2. Atorvastatin 40 mg at night, 30 tablets dispensed. 3. Pepcid 20 mg twice a day, 60 tablets dispensed. 4. Glipizide 5 mg daily, 30 tablets dispensed. 5. Tessalon 100 mg 3 times a day as needed for cough. 6. Losartan 25 mg daily. 7. Spironolactone 25 mg daily. 8. Ventolin as needed. Job ID: [id number]
--- NOTE | 2018-06-18 22:34 | PDOC.PN ---
- Subjective Encounter Start Date: 06/11/18 Encounter Start Time: 10:33 Subjective: Patient comfortable. More verbal than previously. -: Per family disoriented, but patient alert and oriented. -: States she is agreeable to be discharged to rehab. Denies any complaints. Family reports she has been confused and gait still not at baseline. - Objective Vital Signs & Weight: Weight Weight 179 lb 14.4 oz Result Diagrams: 06/11/18 05:01 06/11/18 05:01 Phys Exam - Physical Examination Constitutional: NAD HEENT: PERRLA, moist MMs, sclera anicteric, oral pharynx no lesions Neck: no nodes, supple Respiratory: clear to auscultation bilateral Cardiovascular: RRR Gastrointestinal: soft, non-tender, no distention, positive bowel sounds Musculoskeletal: no edema, pulses present Neurological: normal sensation, moves all 4 limbs Psychiatric: A&O x 3 Skin: no rash Dx/Plan (1) Brainstem stroke Code(s): I63.9 - CEREBRAL INFARCTION, UNSPECIFIED Status: Acute Comment: Positive MRI, on ASA, Statin (2) Slurred speech Code(s): R47.81 - SLURRED SPEECH Status: Acute (3) Hyperglycemia Code(s): R73.9 - HYPERGLYCEMIA, UNSPECIFIED Status: Acute (4) Hypertension Code(s): I10 - ESSENTIAL (PRIMARY) HYPERTENSION Status: Chronic Qualifiers: Hypertension type: essential hypertension Qualified Code(s): I10 - Essential (primary) hypertension Comment: well controlled (5) Hyperlipidemia Code(s): E78.5 - HYPERLIPIDEMIA, UNSPECIFIED Status: Chronic Comment: on statin - Plan cont current plan of care, plan discussed w/ family, continue antibiotics, PT/OT CTA unremarkable. Cleared by neuro for discharge to rehab. -: Patient awaiting placement. -: To be discharged on Levaquin for UTI. -: Metformin 500 mg BID, to be managed further by PCP. -: Per Dr. Larson, Lantus 5 units SQ at night. Monitor glucose ACHS. Family states she seems disoriented. Has not been sleeping. Will add Melatonin at night to help with sleep. Seen and discussed with Dr. Larson who agrees with plan as above. Review of Systems - Review of Systems Constitutional: negative: fever, chills, sweats, weakness, malaise Respiratory: negative: Cough, Dry, Shortness of Breath, Hemoptysis, SOB with Excertion, Pleuritic Pain, Sputum, Wheezing Cardiovascular: negative: chest pain, palpitations, orthopnea, paroxysmal nocturnal dyspnea, edema, light headedness, other Gastrointestinal: negative: Nausea, Vomiting, Abdominal Pain, Diarrhea, Constipation, Melena, Hematochezia Genitourinary: negative: Dysuria, Frequency, Incontinence, Hematuria, Retention Musculoskeletal: negative: Neck Pain, Shoulder Pain, Arm Pain, Back Pain, Hand Pain, Leg Pain, Foot Pain Skin: negative: Rash, Lesions Neurological: Change in Speech Other: Speech somewhat slow and slurred, improved from initial presentation. More communicative. - Medications/Allergies Allergies/Adverse Reactions: Allergies Allergy/AdvReac Type Severity Reaction Status Date / Time Penicillins Allergy Verified 06/09/18 04:33
== END 2018-06-15 17:05 | DRG 65 ==
LOC: ERS 10:08 → OBSVTOIN 13:46 → ERHOLD 13:46 → 2SE 17:53
PROVIDERS: ADMIT Internal Medicine; ATTEND Internal Medicine
DX: I63.9 Cerebral infarction, unspecified (principal); N30.00 Acute cystitis without hematuria; R47.81 Slurred speech; I10 Essential (primary) hypertension; E11.42 Type 2 diabetes mellitus with diabetic polyneuropathy; B96.20 Unspecified Escherichia coli [E. coli] as the cause of diseases classified elsewhere; E78.5 Hyperlipidemia, unspecified; E66.9 Obesity, unspecified; Z68.32 Body mass index [BMI] 32.0-32.9, adult; F32.9 Major depressive disorder, single episode, unspecified; Z88.0 Allergy status to penicillin; Z91.14 Patient's other noncompliance with medication regimen
CPT/HCPCS: 36415; 36416; 70450; 70496; 70498; 70551; 80053; 80061; 81003; 81015; 83036; 84484; 85025; 87077; 87086; 87186; 90471; 90670; 93005; 93306; 93880; 96365; 96366; G0009; J0696; J2405; J7050; Q0162

== ENCOUNTER 2021-06-23 13:18 | Outpatient (CLI) | payer MEDICARE ==
[2021-06-23 14:58] LABS: #Eosinphils 0.2 10x3/uL (0.0-0.5); #Monocytes 0.4 10x3/uL (0.0-1.1); #Neutrophils 4.9 10x3/uL (1.5-8.4); %Basophils 0.4 % (0.0-2.0); %Lymphocytes 24.1 % (18.0-47.0); %Neutrophils 67.1 % (40.0-75.0); Mean Corpuscular HGB CONC 30.7 g/dL (32.0-36.0); Mean Corpuscular Hemoglobin 28.7 pg (27.0-33.0); Mean Corpuscular Volume 93.7 fl (81.6-98.3); Mean Platelet Volume 12.9 fl (7.4-10.4); RBC Distribution Width 18.2 % (11.5-14.5); Red Blood Cell (RBC) Count 3.48 10x6/uL (3.90-5.03); White Blood Cell (WBC) Count 7.3 10x3/uL (3.5-10.5)
[2021-06-23 15:00] LABS: Platelet Count 163 10x3/uL (150-450)
[2021-06-23 15:07] LABS: Anion Gap 16 mmol/L (10-20); BUN (Urea Nitrogen) 12 mg/dL (9.8-20.1); Calc. Creatinine Clearance 0 mL/min (70-130); Calcium 10.2 mg/dL (7.8-10.44); Carbon Dioxide 22 mmol/L (23-31); Chloride 108 mmol/L (98-107); Glucose 95 mg/dL (83-110); Potassium 4.3 mmol/L (3.5-5.1); Sodium 142 mmol/L (136-145)
[2021-06-24 08:37] LABS: SARS-CoV-2 PCR by NAA Not Detected (NotDetected)
== END 2021-06-23 13:19 | disposition home or self-care (01) ==
LOC: LABBT 13:18
PROVIDERS: ATTEND Specialist
DX: Z01.818 Encounter for other preprocedural examination (principal); C50.919 Malignant neoplasm of unspecified site of unspecified female breast; Z20.822 Contact with and (suspected) exposure to COVID-19
CPT/HCPCS: 71046; 80048; 85025; U0003; U0005

== ENCOUNTER 2021-06-26 07:32 | Day surgery (SDC) | payer MEDICARE ==
[2021-06-23 12:45] VITALS: BMI 30.7
[2021-06-26] MEDS ORDERED: Fentanyl 100 MCG/2 ML VIAL ONE (09:43)
[2021-06-26] MEDS ORDERED: Lidocaine 2% w/Epinephrine 1:200K 20 ML VIAL ONE ×2 (09:45→12:44)
[2021-06-26] MEDS ORDERED: Isosulfan Blue 50 MG/5 ML VIAL ONE (09:45)
[2021-06-26] MEDS ORDERED: Bupivacaine 0.25% HCL 30 ML VIAL ONE ×2 (09:45→12:44)
[2021-06-26] MEDS ORDERED: Levofloxacin 500 mg/D5W 100 ml Premix Bag ONE (11:04)
[2021-06-26] MEDS ORDERED: Acetaminophen 500 MG TAB ONE (11:04)
[2021-06-26] MEDS ORDERED: Ketorolac Tromethamine 30 MG/ML VIAL ONE (11:04)
[2021-06-26] MEDS ORDERED: ePHEDrine 50 MG/ML VIAL ONE (11:27)
[2021-06-26] MEDS ORDERED: PHENYLEPHRINE-NS 100 MCG/ML 10 ML SYRINGE ONE (11:27)
[2021-06-26] MEDS ORDERED: PROPOFOL 200 MG/20 ML VIAL ONE (11:27)
[2021-06-26] MEDS ORDERED: Ondansetron PF 4 MG/2 ML Vial ONE (11:27)
[2021-06-26] MEDS ORDERED: Lidocaine 1% PF 5 ML VIAL ONE (11:27)
[2021-06-26] MEDS ORDERED: Promethazine HCl 25 MG/ML VIAL ONE (14:31)
[2021-06-26] MEDS ORDERED: Artificial Tear Sol 15 ML BOT EA EYE SCH (16:45)
== END 2021-06-26 17:02 | disposition home or self-care (01) ==
LOC: SDC 07:32
PROVIDERS: ATTEND Specialist
PROC: 0HBT0ZZ Excision of Right Breast, Open Approach (ICD-10-PCS; principal; 2021-06-26)
PROC: 07B50ZX Excision of Right Axillary Lymphatic, Open Approach, Diagnostic (ICD-10-PCS; 2021-06-26)
DX: C50.411 Malignant neoplasm of upper-outer quadrant of right female breast (principal); C77.3 Secondary and unspecified malignant neoplasm of axilla and upper limb lymph nodes; J45.909 Unspecified asthma, uncomplicated; E11.9 Type 2 diabetes mellitus without complications; I10 Essential (primary) hypertension; E78.00 Pure hypercholesterolemia, unspecified; E66.9 Obesity, unspecified; Z68.30 Body mass index [BMI] 30.0-30.9, adult; Z17.0 Estrogen receptor positive status [ER+]; Z86.73 Personal history of transient ischemic attack (TIA), and cerebral infarction without residual deficits; Z79.4 Long term (current) use of insulin; Z79.82 Long term (current) use of aspirin; Z79.84 Long term (current) use of oral hypoglycemic drugs; Z79.899 Other long term (current) drug therapy; Z88.0 Allergy status to penicillin
CPT/HCPCS: 19301; 38525; 38900; 76098; 78195; 82962; A9541; C1713; Q9968; 36416; 88307; 88342; J1885; J1956; J2405; J2550; J2704; J3010; J3490; S0020

== ENCOUNTER 2021-11-14 13:05 | Emergency (ER) | payer MEDICARE ==
[2021-11-14] MEDS ORDERED: Iopamidol-370 76% 500 ML 1 ML ONE (13:27)
[2021-11-14 14:43] LABS: Hemoglobin 8.2 g/dL (12.0-16.0); Mean Corpuscular HGB CONC 31.8 g/dL (32.0-36.0); Mean Corpuscular Hemoglobin 29.7 pg (27.0-31.0); Mean Corpuscular Volume 93.5 fL (78.0-98.0); Mean Platelet Volume 10.6 fL (7.4-10.4); Platelet Count 146 thou/uL (130-400); RBC Distribution Width 19.3 % (11.5-14.5); Red Blood Cell (RBC) Count 2.77 mill/uL (4.20-5.40); White Blood Cell (WBC) Count 2.5 thou/uL (4.8-10.8)
[2021-11-14 15:05] LABS: ALT (SGPT) 15 U/L (8-55); AST (SGOT) 15 U/L (5-34); Albumin 3.6 g/dL (3.4-4.8); Alkaline Phosphatase 47 U/L (40-110); Anion Gap 17 mmol/L (10-20); BUN (Urea Nitrogen) 18 mg/dL (9.8-20.1); Bilirubin, Total 0.5 mg/dL (0.2-1.2); CK (CPK) 19 U/L (29-168); Calc. Creatinine Clearance 0 mL/min (70-130); Calcium 10.1 mg/dL (7.8-10.44); Carbon Dioxide 22 mmol/L (23-31); Chloride 100 mmol/L (98-107); Globulin 3.2 g/dL (2.4-3.5); Glucose 138 mg/dL (83-110); Lipase 5 U/L (8-78); Magnesium 1.8 mg/dL (1.6-2.6); Potassium 3.6 mmol/L (3.5-5.1); Protein, Total 6.8 g/dL (5.8-8.1); Sodium 135 mmol/L (136-145)
[2021-11-14 15:14] LABS: Anisocytosis SLIGHT = 6-15 cells (100X) (0-5/hpf); Band 29 % (5-11); Eosinophils 3 % (0-10); Lymphocytes 18 % (21-51); MDiff Complete? YES; Metamyelocyte 2 % (0-0); Monocytes 20 % (0-10); Neutrophil 26 % (42-75); Nucleated RBC 3 % (0); Ovalocytes SLIGHT = 2-5 cells (100X) (0-1/hpf); Platelet Morphology Comment Appears Adequate; Polychromasia MODERATE = 3-4 cells (100X) (0-2/hpf); Reactive Lymphocytes 2 % (0-10)
[2021-11-14] MEDS ORDERED: Vancomycin 1 GM/200 ML BAG ONE (15:48)
[2021-11-14] MEDS ORDERED: Meropenem 1 GM in Sodium Chloride 0.9% 100 ML IVPB SCH (16:00)
[2021-11-14 16:26] LABS: SARS-CoV-2 NAA Rapid Test Not Detected (NotDetected)
[2021-11-14] MEDS ORDERED: Dicyclomine 20 MG TAB ONE (17:03)
== END 2021-11-14 17:19 | disposition home or self-care (01) ==
LOC: ERS 13:05
DX: R10.9 Unspecified abdominal pain (principal); R19.7 Diarrhea, unspecified; R11.0 Nausea; Z20.822 Contact with and (suspected) exposure to COVID-19; E78.5 Hyperlipidemia, unspecified; E78.00 Pure hypercholesterolemia, unspecified; I10 Essential (primary) hypertension; Z85.3 Personal history of malignant neoplasm of breast; E11.9 Type 2 diabetes mellitus without complications; Z79.84 Long term (current) use of oral hypoglycemic drugs
CPT/HCPCS: 0240U; 71045; 74177; 80053; 82550; 83605; 83690; 83735; 85025; 87040; 93005; 94760; 36415; 96361; 96374; J2185; J3370; J3490; Q9967

== ENCOUNTER 2021-11-23 12:59 | Inpatient (IN) | payer MEDICARE ==
[~2021-11-23 12:59] MED LIST: ISOVUE-370 76%-LOCM 1 ML ONE
[2021-11-23 14:03] LABS: #Eosinphils 0.1 thou/uL (0.0-0.7); #Monocytes 0.8 thou/uL (0.11-0.59); #Neutrophils 11.3 thou/uL (1.40-6.50); %Eosinophils 0.5 % (0.0-10.0); %Lymphocytes 7.3 % (21.0-51.0); %Neutrophils 86.2 % (42.0-75.0); Hemoglobin 9.4 g/dL (12.0-16.0); Mean Corpuscular HGB CONC 29.8 g/dL (32.0-36.0); Mean Corpuscular Hemoglobin 29.8 pg (27.0-31.0); Mean Corpuscular Volume 99.8 fL (78.0-98.0); Mean Platelet Volume 10.4 fL (7.4-10.4); Platelet Count 259 thou/uL (130-400); RBC Distribution Width 21.4 % (11.5-14.5); Red Blood Cell (RBC) Count 3.15 mill/uL (4.20-5.40); White Blood Cell (WBC) Count 13.2 thou/uL (4.8-10.8)
[2021-11-23 14:18] LABS: Anisocytosis MODERATE=16-30 cells (100X) (0-5/hpf); Hypochromia SLIGHT = 6-15 cells (100X) (0-5/hpf); Large Platelets SLIGHT; MDiff Complete? YES; Macrocytosis SLIGHT = 6-15 cells (100X) (0-5/hpf); Ovalocytes SLIGHT = 2-5 cells (100X) (0-1/hpf); Platelet Morphology Comment Appears Adequate; Polychromasia SLIGHT = 2-3 cells (100X) (0-2/hpf); Tear Drops SLIGHT = 2-5 cells (100X) (0-1/hpf)
[2021-11-23 14:21] LABS: ALT (SGPT) 12 U/L (8-55); AST (SGOT) 18 U/L (5-34); Albumin 3.6 g/dL (3.4-4.8); Alkaline Phosphatase 58 U/L (40-110); Anion Gap 18 mmol/L (10-20); BUN (Urea Nitrogen) 8 mg/dL (9.8-20.1); Bilirubin, Total 0.6 mg/dL (0.2-1.2); Calc. Creatinine Clearance 0 mL/min (70-130); Calcium 9.8 mg/dL (7.8-10.44); Carbon Dioxide 21 mmol/L (23-31); Chloride 108 mmol/L (98-107); Estimated GFR 71; Globulin 2.8 g/dL (2.4-3.5); Glucose 168 mg/dL (83-110); Potassium 4.7 mmol/L (3.5-5.1); Protein, Total 6.4 g/dL (5.8-8.1); Sodium 142 mmol/L (136-145)
[2021-11-23] MEDS ORDERED: Acetaminophen 325 MG TAB ONE (16:16)
[2021-11-23] MEDS ORDERED: Boostrix 0.5 ML (Tdap) VIAL ONE (16:16)
[2021-11-23] MEDS ORDERED: Insulin Regular 300 UNITS/3 ML VIAL SC PRN (16:34)
[2021-11-23] MEDS ORDERED: Dextrose 5% in Water 1,000 ML IV PRN (16:34)
[2021-11-23] MEDS ORDERED: Ondansetron PF 4 MG/2 ML Vial IVP PRN (16:34)
[2021-11-23] MEDS ORDERED: Dextrose 50% Abboject 50 ML SYRINGE SLOW IVP PRN (16:34)
[2021-11-23] MEDS ORDERED: traMADol HCl 50 MG TAB PO PRN ×2 (16:36)
[2021-11-23] MEDS ORDERED: Ibuprofen 800 MG TAB PO PRN (16:36)
[2021-11-23 21:57] VITALS: BMI 34.9
[2021-11-23] MEDS: Famotidine 20 MG TAB PO SCH (22:13)
[2021-11-23] MEDS: Gabapentin 100 MG CAP PO SCH (22:13)
[2021-11-23] MEDS: Senokot S 8.6-50 MG TAB PO SCH (22:14)
[2021-11-23] MEDS: Acetaminophen 500 MG TAB PO SCH (22:14)
[2021-11-24 00:51] LABS: SARS-CoV-2 NAA Rapid Test Not Detected (NotDetected)
[2021-11-24] MEDS: Acetaminophen 500 MG TAB PO SCH ×2 (05:06→09:28)
[2021-11-24 06:11] LABS: Anion Gap 14 mmol/L (10-20); BUN (Urea Nitrogen) 6 mg/dL (9.8-20.1); Calc. Creatinine Clearance 73 mL/min (70-130); Calcium 9.7 mg/dL (7.8-10.44); Carbon Dioxide 23 mmol/L (23-31); Chloride 108 mmol/L (98-107); Estimated GFR 71; Glucose 144 mg/dL (83-110); Magnesium 1.7 mg/dL (1.6-2.6); Phosphorus 3.1 mg/dL (2.3-4.7); Sodium 141 mmol/L (136-145)
[2021-11-24 06:46] LABS: #Eosinphils 0.1 thou/uL (0.0-0.7); #Monocytes 0.7 thou/uL (0.11-0.59); #Neutrophils 7.2 thou/uL (1.40-6.50); %Basophils 0.4 % (0.0-1.0); %Eosinophils 1.1 % (0.0-10.0); %Lymphocytes 11.2 % (21.0-51.0); %Monocytes 7.6 % (0.0-10.0); %Neutrophils 79.7 % (42.0-75.0); Anisocytosis MODERATE=16-30 cells (100X) (0-5/hpf); Hemoglobin 7.9 g/dL (12.0-16.0); MDiff Complete? YES; Mean Corpuscular HGB CONC 29.5 g/dL (32.0-36.0); Mean Corpuscular Hemoglobin 28.4 pg (27.0-31.0); Mean Corpuscular Volume 96.3 fL (78.0-98.0); Mean Platelet Volume 9.9 fL (7.4-10.4); Platelet Count 261 thou/uL (130-400); RBC Distribution Width 21.2 % (11.5-14.5); Red Blood Cell (RBC) Count 2.79 mill/uL (4.20-5.40); White Blood Cell (WBC) Count 9.1 thou/uL (4.8-10.8)
[2021-11-24] MEDS: Senokot S 8.6-50 MG TAB PO SCH ×2 (09:29→20:31)
[2021-11-24] MEDS: Gabapentin 100 MG CAP PO SCH ×3 (09:30→20:30)
[2021-11-24] MEDS: Polyethylene Glycol 3350 17 GM Packet PO SCH (09:30)
[2021-11-24] MEDS: Famotidine 20 MG TAB PO SCH ×3 (09:31→20:31)
[2021-11-24] MEDS: Ascorbic Acid 500 mg Chewable Tablet PO SCH ×2 (09:34→20:30)
[2021-11-24] MEDS: Aspirin 81 mg Enteric Coated Tablet PO SCH (09:34)
[2021-11-24] MEDS: Atorvastatin Calcium 40 MG TAB PO SCH (09:34)
[2021-11-24] MEDS: Enoxaparin Sodium 40 MG/0.4 ML SYRINGE SC SCH (09:34)
[2021-11-24] MEDS: Ferrous Sulfate 325 MG TAB PO SCH ×2 (09:41→20:31)
[2021-11-24] MEDS: Insulin Regular 300 UNITS/3 ML VIAL SC PRN ×2 (12:11→16:34)
[2021-11-24 14:27] LABS: Bacteria/HPF 4+ HPF (None Seen); Bilirubin Negative (Negative); Blood, Urine Trace (Negative); Clarity Turbid (Clear); Glucose, Urine (Dipstick) Normal (Negative); Ketone, Urine Negative (Negative); Leukocyte 500 Leu/uL (Negative); Nitrite Negative (Negative); Protein, Urine (Dipstick) 30 mg/dL (Neg-Trace); Specific Gravity, Urine 1.032 (1.002-1.036); Squamous Epithelial 0-3 HPF (0-3); Urobilinogen Normal mg/dL (Less than 2); WBC/HPF Greater than 50 HPF (0-3); pH, Urine 5.5 (5.0-9.0)
[2021-11-24 14:29] LABS: Urine Culture Reflex Yes Yes
[2021-11-24] MEDS: Acetaminophen 325 MG TAB PO SCH ×2 (16:30→22:52)
[2021-11-24] MEDS: cefTRIAXone\\ROCEPHIN 2 GM in Sodium Chloride 0.9% 100 ML IVPB SCH (22:52)
[2021-11-25] MEDS: Acetaminophen 325 MG TAB PO SCH ×4 (03:41→21:45)
[2021-11-25] MEDS: Acetaminophen/Codeine 30-300mg Tablet PO PRN ×3 (03:48→19:13)
[2021-11-25] MEDS: Insulin Regular 300 UNITS/3 ML VIAL SC PRN (06:03)
[2021-11-25 06:28] LABS: #Eosinphils 0.1 thou/uL (0.0-0.7); #Lymphocytes 1.3 thou/uL (1.20-3.40); #Monocytes 0.8 thou/uL (0.11-0.59); #Neutrophils 6.7 thou/uL (1.40-6.50); %Eosinophils 1.4 % (0.0-10.0); %Lymphocytes 14.6 % (21.0-51.0); %Neutrophils 75.1 % (42.0-75.0); Hemoglobin 7.7 g/dL (12.0-16.0); Mean Corpuscular HGB CONC 31.7 g/dL (32.0-36.0); Mean Corpuscular Hemoglobin 30.1 pg (27.0-31.0); Mean Platelet Volume 9.6 fL (7.4-10.4); Platelet Count 254 thou/uL (130-400); RBC Distribution Width 20.5 % (11.5-14.5); Red Blood Cell (RBC) Count 2.54 mill/uL (4.20-5.40); White Blood Cell (WBC) Count 8.9 thou/uL (4.8-10.8)
[2021-11-25] MEDS ORDERED: Nitrofurantoin Monohyd/M-Cryst 100 MG CAP PO SCH (09:00)
[2021-11-25] MEDS: Gabapentin 100 MG CAP PO SCH ×3 (09:29→20:55)
[2021-11-25] MEDS: Aspirin 81 mg Enteric Coated Tablet PO SCH (09:29)
[2021-11-25] MEDS: Famotidine 20 MG TAB PO SCH ×2 (09:30→20:54)
[2021-11-25] MEDS: Senokot S 8.6-50 MG TAB PO SCH ×2 (09:30→21:11)
[2021-11-25] MEDS: Ferrous Sulfate 325 MG TAB PO SCH ×2 (09:30→20:54)
[2021-11-25] MEDS: Atorvastatin Calcium 40 MG TAB PO SCH (09:30)
[2021-11-25] MEDS: Ascorbic Acid 500 mg Chewable Tablet PO SCH ×2 (09:30→20:54)
[2021-11-25] MEDS: Enoxaparin Sodium 40 MG/0.4 ML SYRINGE SC SCH (09:31)
[2021-11-25] MEDS: Polyethylene Glycol 3350 17 GM Packet PO SCH (09:32)
[2021-11-25] MEDS: Ibuprofen 800 MG TAB PO SCH ×2 (19:12→21:46)
[2021-11-25] MEDS: cefTRIAXone\\ROCEPHIN 2 GM in Sodium Chloride 0.9% 100 ML IVPB SCH (21:46)
[2021-11-26] MEDS: Acetaminophen 325 MG TAB PO SCH ×4 (03:31→22:00)
[2021-11-26] MEDS: Ibuprofen 800 MG TAB PO SCH ×3 (07:00→22:02)
[2021-11-26] MEDS: Atorvastatin Calcium 40 MG TAB PO SCH (09:41)
[2021-11-26] MEDS: Aspirin 81 mg Enteric Coated Tablet PO SCH (09:42)
[2021-11-26] MEDS: Famotidine 20 MG TAB PO SCH ×2 (09:42→22:01)
[2021-11-26] MEDS: Losartan 25 MG TAB PO SCH (09:43)
[2021-11-26] MEDS: Ferrous Sulfate 325 MG TAB PO SCH ×2 (09:43→22:00)
[2021-11-26] MEDS: Gabapentin 100 MG CAP PO SCH ×3 (09:43→22:01)
[2021-11-26] MEDS: Ascorbic Acid 500 mg Chewable Tablet PO SCH ×2 (09:44→22:00)
[2021-11-26] MEDS: Enoxaparin Sodium 40 MG/0.4 ML SYRINGE SC SCH (09:45)
[2021-11-26] MEDS: Polyethylene Glycol 3350 17 GM Packet PO SCH (10:09)
[2021-11-26] MEDS: Senokot S 8.6-50 MG TAB PO SCH ×2 (10:09→22:01)
[2021-11-26] MEDS: Insulin Regular 300 UNITS/3 ML VIAL SC PRN (12:00)
[2021-11-26] MEDS: cefTRIAXone\\ROCEPHIN 2 GM in Sodium Chloride 0.9% 100 ML IVPB SCH (22:00)
[2021-11-27] MEDS: Acetaminophen 325 MG TAB PO SCH ×4 (04:32→21:11)
[2021-11-27] MEDS: Ibuprofen 800 MG TAB PO SCH ×3 (05:54→21:11)
[2021-11-27] MEDS: Losartan 25 MG TAB PO SCH (09:55)
[2021-11-27] MEDS: Famotidine 20 MG TAB PO SCH ×2 (09:55→21:10)
[2021-11-27] MEDS: Atorvastatin Calcium 40 MG TAB PO SCH (09:56)
[2021-11-27] MEDS: Saccharomyces boulardii 250 MG CAP PO SCH (09:56)
[2021-11-27] MEDS: Aspirin 81 mg Enteric Coated Tablet PO SCH (09:56)
[2021-11-27] MEDS: Ascorbic Acid 500 mg Chewable Tablet PO SCH ×2 (09:56→21:10)
[2021-11-27] MEDS: Ferrous Sulfate 325 MG TAB PO SCH ×2 (09:56→21:10)
[2021-11-27] MEDS: Gabapentin 100 MG CAP PO SCH ×3 (09:56→21:10)
[2021-11-27] MEDS: Senokot S 8.6-50 MG TAB PO SCH ×2 (09:59→21:12)
[2021-11-27] MEDS: Polyethylene Glycol 3350 17 GM Packet PO SCH (09:59)
[2021-11-27] MEDS: Enoxaparin Sodium 40 MG/0.4 ML SYRINGE SC SCH (09:59)
[2021-11-27 11:24] LABS: Hemoglobin 8.4 g/dL (12.0-16.0)
[2021-11-28] MEDS: Acetaminophen 325 MG TAB PO SCH ×4 (03:57→21:46)
[2021-11-28] MEDS: Ibuprofen 800 MG TAB PO SCH ×3 (05:56→21:46)
[2021-11-28] MEDS: Ascorbic Acid 500 mg Chewable Tablet PO SCH ×2 (08:50→21:45)
[2021-11-28] MEDS: Atorvastatin Calcium 40 MG TAB PO SCH (08:51)
[2021-11-28] MEDS: Aspirin 81 mg Enteric Coated Tablet PO SCH (08:51)
[2021-11-28] MEDS: Enoxaparin Sodium 40 MG/0.4 ML SYRINGE SC SCH (08:51)
[2021-11-28] MEDS: Famotidine 20 MG TAB PO SCH ×2 (08:52→21:46)
[2021-11-28] MEDS: Ferrous Sulfate 325 MG TAB PO SCH ×2 (08:52→21:47)
[2021-11-28] MEDS: Gabapentin 100 MG CAP PO SCH ×3 (08:53→21:47)
[2021-11-28] MEDS: Losartan 25 MG TAB PO SCH (08:54)
[2021-11-28] MEDS: Saccharomyces boulardii 250 MG CAP PO SCH (08:55)
[2021-11-28] MEDS: Polyethylene Glycol 3350 17 GM Packet PO SCH (08:56)
[2021-11-28] MEDS: Senokot S 8.6-50 MG TAB PO SCH ×2 (08:56→21:47)
[2021-11-29] MEDS: Acetaminophen 325 MG TAB PO SCH ×4 (03:51→20:08)
[2021-11-29 05:48] LABS: Hemoglobin 8.3 g/dL (12.0-16.0)
[2021-11-29] MEDS: Ibuprofen 800 MG TAB PO SCH ×3 (06:02→20:06)
[2021-11-29 06:15] LABS: Anion Gap 17 mmol/L (10-20); BUN (Urea Nitrogen) 13 mg/dL (9.8-20.1); Calc. Creatinine Clearance 80 mL/min (70-130); Calcium 9.8 mg/dL (7.8-10.44); Carbon Dioxide 18 mmol/L (23-31); Chloride 110 mmol/L (98-107); Estimated GFR 79; Glucose 141 mg/dL (83-110); Potassium 4.3 mmol/L (3.5-5.1); Sodium 141 mmol/L (136-145)
[2021-11-29] MEDS: Ferrous Sulfate 325 MG TAB PO SCH ×2 (08:55→20:04)
[2021-11-29] MEDS: Atorvastatin Calcium 40 MG TAB PO SCH (08:55)
[2021-11-29] MEDS: Losartan 25 MG TAB PO SCH (08:56)
[2021-11-29] MEDS: Senokot S 8.6-50 MG TAB PO SCH ×2 (08:56→20:05)
[2021-11-29] MEDS: Saccharomyces boulardii 250 MG CAP PO SCH (08:56)
[2021-11-29] MEDS: Ascorbic Acid 500 mg Chewable Tablet PO SCH ×2 (08:57→20:03)
[2021-11-29] MEDS: Aspirin 81 mg Enteric Coated Tablet PO SCH (08:57)
[2021-11-29] MEDS: Famotidine 20 MG TAB PO SCH ×2 (08:57→20:04)
[2021-11-29] MEDS: Gabapentin 100 MG CAP PO SCH ×3 (08:57→20:05)
[2021-11-29] MEDS: Polyethylene Glycol 3350 17 GM Packet PO SCH (08:59)
[2021-11-29] MEDS: Enoxaparin Sodium 40 MG/0.4 ML SYRINGE SC SCH (10:52)
[2021-11-30] MEDS: Acetaminophen 325 MG TAB PO SCH ×4 (04:53→20:53)
[2021-11-30] MEDS: Ibuprofen 800 MG TAB PO SCH ×3 (04:54→20:54)
[2021-11-30] MEDS: Saccharomyces boulardii 250 MG CAP PO SCH (08:10)
[2021-11-30] MEDS: Gabapentin 100 MG CAP PO SCH ×3 (08:10→20:54)
[2021-11-30] MEDS: Ferrous Sulfate 325 MG TAB PO SCH ×2 (08:10→20:54)
[2021-11-30] MEDS: Losartan 25 MG TAB PO SCH (08:10)
[2021-11-30] MEDS: Polyethylene Glycol 3350 17 GM Packet PO SCH (08:11)
[2021-11-30] MEDS: Atorvastatin Calcium 40 MG TAB PO SCH (08:11)
[2021-11-30] MEDS: Aspirin 81 mg Enteric Coated Tablet PO SCH (08:11)
[2021-11-30] MEDS: Famotidine 20 MG TAB PO SCH ×2 (08:11→20:54)
[2021-11-30] MEDS: Senokot S 8.6-50 MG TAB PO SCH ×2 (08:11→20:54)
[2021-11-30] MEDS: Enoxaparin Sodium 40 MG/0.4 ML SYRINGE SC SCH (08:11)
[2021-11-30] MEDS: Ascorbic Acid 500 mg Chewable Tablet PO SCH ×2 (08:11→20:53)
[2021-12-01] MEDS: Acetaminophen 325 MG TAB PO SCH ×4 (03:54→21:19)
[2021-12-01] MEDS: Ibuprofen 800 MG TAB PO SCH ×3 (05:35→21:19)
[2021-12-01] MEDS: Atorvastatin Calcium 40 MG TAB PO SCH (08:06)
[2021-12-01] MEDS: Losartan 25 MG TAB PO SCH (08:06)
[2021-12-01] MEDS: Saccharomyces boulardii 250 MG CAP PO SCH (08:06)
[2021-12-01] MEDS: Aspirin 81 mg Enteric Coated Tablet PO SCH (08:06)
[2021-12-01] MEDS: Ascorbic Acid 500 mg Chewable Tablet PO SCH ×2 (08:06→21:19)
[2021-12-01] MEDS: Ferrous Sulfate 325 MG TAB PO SCH ×2 (08:06→21:20)
[2021-12-01] MEDS: Enoxaparin Sodium 40 MG/0.4 ML SYRINGE SC SCH (08:07)
[2021-12-01] MEDS: Senokot S 8.6-50 MG TAB PO SCH ×2 (08:07→21:21)
[2021-12-01] MEDS: Gabapentin 100 MG CAP PO SCH ×3 (08:07→21:19)
[2021-12-01] MEDS: Famotidine 20 MG TAB PO SCH ×2 (08:07→21:19)
[2021-12-01] MEDS: Polyethylene Glycol 3350 17 GM Packet PO SCH (08:34)
[2021-12-02] MEDS: Acetaminophen 325 MG TAB PO SCH ×4 (04:30→21:03)
[2021-12-02] MEDS: Ibuprofen 800 MG TAB PO SCH ×3 (05:35→21:04)
[2021-12-02] MEDS: Ascorbic Acid 500 mg Chewable Tablet PO SCH ×2 (08:47→21:03)
[2021-12-02] MEDS: Aspirin 81 mg Enteric Coated Tablet PO SCH (08:47)
[2021-12-02] MEDS: Gabapentin 100 MG CAP PO SCH ×3 (08:47→21:03)
[2021-12-02] MEDS: Atorvastatin Calcium 40 MG TAB PO SCH (08:48)
[2021-12-02] MEDS: Famotidine 20 MG TAB PO SCH ×2 (08:48→21:03)
[2021-12-02] MEDS: Ferrous Sulfate 325 MG TAB PO SCH ×2 (08:48→21:03)
[2021-12-02] MEDS: Saccharomyces boulardii 250 MG CAP PO SCH (08:48)
[2021-12-02] MEDS: Losartan 25 MG TAB PO SCH (08:48)
[2021-12-02] MEDS: Senokot S 8.6-50 MG TAB PO SCH ×2 (08:48→21:05)
[2021-12-02] MEDS: Polyethylene Glycol 3350 17 GM Packet PO SCH (08:49)
[2021-12-02] MEDS: Enoxaparin Sodium 40 MG/0.4 ML SYRINGE SC SCH (08:49)
[2021-12-03] MEDS: Acetaminophen 325 MG TAB PO SCH ×4 (04:36→22:17)
[2021-12-03] MEDS: Ibuprofen 800 MG TAB PO SCH ×3 (05:52→22:15)
[2021-12-03] MEDS: Losartan 25 MG TAB PO SCH (08:35)
[2021-12-03] MEDS: Ferrous Sulfate 325 MG TAB PO SCH ×2 (08:35→22:18)
[2021-12-03] MEDS: Saccharomyces boulardii 250 MG CAP PO SCH (08:36)
[2021-12-03] MEDS: Famotidine 20 MG TAB PO SCH ×2 (08:36→22:17)
[2021-12-03] MEDS: Aspirin 81 mg Enteric Coated Tablet PO SCH (08:36)
[2021-12-03] MEDS: Senokot S 8.6-50 MG TAB PO SCH ×2 (08:36→22:19)
[2021-12-03] MEDS: Gabapentin 100 MG CAP PO SCH ×3 (08:36→22:16)
[2021-12-03] MEDS: Atorvastatin Calcium 40 MG TAB PO SCH (08:37)
[2021-12-03] MEDS: Ascorbic Acid 500 mg Chewable Tablet PO SCH ×2 (08:37→22:18)
[2021-12-03] MEDS: Enoxaparin Sodium 40 MG/0.4 ML SYRINGE SC SCH (08:37)
[2021-12-03] MEDS: Polyethylene Glycol 3350 17 GM Packet PO SCH (08:38)
[2021-12-04] MEDS: Acetaminophen 325 MG TAB PO SCH ×4 (04:44→21:09)
[2021-12-04] MEDS: Ibuprofen 800 MG TAB PO SCH ×3 (04:52→21:10)
[2021-12-04] MEDS: Atorvastatin Calcium 40 MG TAB PO SCH (08:23)
[2021-12-04] MEDS: Saccharomyces boulardii 250 MG CAP PO SCH (08:23)
[2021-12-04] MEDS: Enoxaparin Sodium 40 MG/0.4 ML SYRINGE SC SCH (08:23)
[2021-12-04] MEDS: Ferrous Sulfate 325 MG TAB PO SCH ×2 (08:25→21:09)
[2021-12-04] MEDS: Senokot S 8.6-50 MG TAB PO SCH ×2 (08:25→21:10)
[2021-12-04] MEDS: Losartan 25 MG TAB PO SCH (08:26)
[2021-12-04] MEDS: Gabapentin 100 MG CAP PO SCH ×3 (08:27→21:08)
[2021-12-04] MEDS: Aspirin 81 mg Enteric Coated Tablet PO SCH (08:28)
[2021-12-04] MEDS: Ascorbic Acid 500 mg Chewable Tablet PO SCH ×2 (08:28→21:07)
[2021-12-04] MEDS: Famotidine 20 MG TAB PO SCH ×2 (08:29→21:08)
[2021-12-04] MEDS: Polyethylene Glycol 3350 17 GM Packet PO SCH (08:59)
[2021-12-04] MEDS: Insulin Regular 300 UNITS/3 ML VIAL SC PRN (11:31)
[2021-12-05] MEDS: Acetaminophen 325 MG TAB PO SCH ×4 (06:10→21:30)
[2021-12-05] MEDS: Ibuprofen 800 MG TAB PO SCH ×3 (06:11→21:32)
[2021-12-05] MEDS: Senokot S 8.6-50 MG TAB PO SCH ×2 (08:21→21:35)
[2021-12-05] MEDS: Ascorbic Acid 500 mg Chewable Tablet PO SCH ×2 (08:24→21:30)
[2021-12-05] MEDS: Ferrous Sulfate 325 MG TAB PO SCH ×2 (08:24→21:30)
[2021-12-05] MEDS: Atorvastatin Calcium 40 MG TAB PO SCH (08:25)
[2021-12-05] MEDS: Gabapentin 100 MG CAP PO SCH ×3 (08:25→21:32)
[2021-12-05] MEDS: Famotidine 20 MG TAB PO SCH ×2 (08:25→21:30)
[2021-12-05] MEDS: Saccharomyces boulardii 250 MG CAP PO SCH (08:25)
[2021-12-05] MEDS: Aspirin 81 mg Enteric Coated Tablet PO SCH (08:25)
[2021-12-05] MEDS: Losartan 25 MG TAB PO SCH (08:25)
[2021-12-05] MEDS: Polyethylene Glycol 3350 17 GM Packet PO SCH (08:26)
[2021-12-05] MEDS: Enoxaparin Sodium 40 MG/0.4 ML SYRINGE SC SCH (08:32)
[2021-12-06] MEDS: Ibuprofen 800 MG TAB PO SCH ×3 (05:17→21:56)
[2021-12-06] MEDS: Acetaminophen 325 MG TAB PO SCH ×4 (05:17→21:56)
[2021-12-06] MEDS: Enoxaparin Sodium 40 MG/0.4 ML SYRINGE SC SCH (10:08)
[2021-12-06] MEDS: Aspirin 81 mg Enteric Coated Tablet PO SCH (10:09)
[2021-12-06] MEDS: Famotidine 20 MG TAB PO SCH ×2 (10:09→21:57)
[2021-12-06] MEDS: Gabapentin 100 MG CAP PO SCH ×3 (10:19→21:54)
[2021-12-06] MEDS: Ferrous Sulfate 325 MG TAB PO SCH ×2 (10:20→21:57)
[2021-12-06] MEDS: Senokot S 8.6-50 MG TAB PO SCH ×2 (10:20→21:53)
[2021-12-06] MEDS: Atorvastatin Calcium 40 MG TAB PO SCH (10:21)
[2021-12-06] MEDS: Saccharomyces boulardii 250 MG CAP PO SCH (10:21)
[2021-12-06] MEDS: Losartan 25 MG TAB PO SCH (10:21)
[2021-12-06] MEDS: Polyethylene Glycol 3350 17 GM Packet PO SCH (10:23)
[2021-12-06] MEDS: Ascorbic Acid 500 mg Chewable Tablet PO SCH ×2 (10:24→21:53)
[2021-12-06] MEDS ORDERED: Ketorolac Tromethamine 30 MG/ML VIAL ONE (14:50)
[2021-12-07] MEDS: Acetaminophen 325 MG TAB PO SCH ×4 (05:30→20:54)
[2021-12-07] MEDS: Ibuprofen 800 MG TAB PO SCH ×3 (05:31→20:52)
[2021-12-07] MEDS: Losartan 25 MG TAB PO SCH (08:24)
[2021-12-07] MEDS: Gabapentin 100 MG CAP PO SCH ×3 (08:25→20:54)
[2021-12-07] MEDS: Enoxaparin Sodium 40 MG/0.4 ML SYRINGE SC SCH (08:26)
[2021-12-07] MEDS: Saccharomyces boulardii 250 MG CAP PO SCH (08:26)
[2021-12-07] MEDS: Ascorbic Acid 500 mg Chewable Tablet PO SCH ×2 (08:26→20:52)
[2021-12-07] MEDS: Famotidine 20 MG TAB PO SCH ×2 (08:26→20:52)
[2021-12-07] MEDS: Ferrous Sulfate 325 MG TAB PO SCH ×2 (08:26→20:51)
[2021-12-07] MEDS: Aspirin 81 mg Enteric Coated Tablet PO SCH (08:26)
[2021-12-07] MEDS: Atorvastatin Calcium 40 MG TAB PO SCH (08:26)
[2021-12-07] MEDS: Senokot S 8.6-50 MG TAB PO SCH ×2 (09:01→20:52)
[2021-12-07] MEDS: Polyethylene Glycol 3350 17 GM Packet PO SCH (09:01)
[2021-12-08] MEDS: Acetaminophen 325 MG TAB PO SCH ×4 (05:54→21:22)
[2021-12-08] MEDS: Ibuprofen 800 MG TAB PO SCH ×3 (05:59→21:24)
[2021-12-08] MEDS: Enoxaparin Sodium 40 MG/0.4 ML SYRINGE SC SCH (08:29)
[2021-12-08] MEDS: Saccharomyces boulardii 250 MG CAP PO SCH (08:30)
[2021-12-08] MEDS: Ascorbic Acid 500 mg Chewable Tablet PO SCH ×2 (08:30→21:22)
[2021-12-08] MEDS: Senokot S 8.6-50 MG TAB PO SCH ×2 (08:30→21:33)
[2021-12-08] MEDS: Famotidine 20 MG TAB PO SCH ×2 (08:31→21:22)
[2021-12-08] MEDS: Losartan 25 MG TAB PO SCH (08:31)
[2021-12-08] MEDS: Ferrous Sulfate 325 MG TAB PO SCH ×2 (08:31→21:22)
[2021-12-08] MEDS: Aspirin 81 mg Enteric Coated Tablet PO SCH (08:31)
[2021-12-08] MEDS: Atorvastatin Calcium 40 MG TAB PO SCH (08:31)
[2021-12-08] MEDS: Gabapentin 100 MG CAP PO SCH ×3 (08:32→21:23)
[2021-12-08] MEDS: Polyethylene Glycol 3350 17 GM Packet PO SCH (08:33)
[2021-12-09] MEDS: Acetaminophen 325 MG TAB PO SCH ×4 (05:35→21:38)
[2021-12-09] MEDS: Ibuprofen 800 MG TAB PO SCH ×3 (05:35→21:37)
[2021-12-09] MEDS: Losartan 25 MG TAB PO SCH (08:36)
[2021-12-09] MEDS: Saccharomyces boulardii 250 MG CAP PO SCH (08:36)
[2021-12-09] MEDS: Enoxaparin Sodium 40 MG/0.4 ML SYRINGE SC SCH (08:36)
[2021-12-09] MEDS: Ascorbic Acid 500 mg Chewable Tablet PO SCH ×2 (08:37→21:37)
[2021-12-09] MEDS: Famotidine 20 MG TAB PO SCH ×2 (08:37→21:37)
[2021-12-09] MEDS: Senokot S 8.6-50 MG TAB PO SCH ×2 (08:37→21:39)
[2021-12-09] MEDS: Aspirin 81 mg Enteric Coated Tablet PO SCH (08:37)
[2021-12-09] MEDS: Gabapentin 100 MG CAP PO SCH ×3 (08:38→21:38)
[2021-12-09] MEDS: Atorvastatin Calcium 40 MG TAB PO SCH (08:38)
[2021-12-09] MEDS: Ferrous Sulfate 325 MG TAB PO SCH ×2 (08:38→21:37)
[2021-12-09] MEDS: Polyethylene Glycol 3350 17 GM Packet PO SCH (08:38)
[2021-12-10] MEDS: Ibuprofen 800 MG TAB PO SCH ×3 (06:02→20:58)
[2021-12-10] MEDS: Acetaminophen 325 MG TAB PO SCH ×4 (06:04→20:57)
[2021-12-10] MEDS: Ascorbic Acid 500 mg Chewable Tablet PO SCH ×2 (09:09→20:57)
[2021-12-10] MEDS: Saccharomyces boulardii 250 MG CAP PO SCH (09:10)
[2021-12-10] MEDS: Atorvastatin Calcium 40 MG TAB PO SCH (09:10)
[2021-12-10] MEDS: Famotidine 20 MG TAB PO SCH ×2 (09:10→20:57)
[2021-12-10] MEDS: Enoxaparin Sodium 40 MG/0.4 ML SYRINGE SC SCH (09:12)
[2021-12-10] MEDS: Ferrous Sulfate 325 MG TAB PO SCH ×2 (09:12→20:57)
[2021-12-10] MEDS: Gabapentin 100 MG CAP PO SCH ×3 (09:12→20:57)
[2021-12-10] MEDS: Losartan 25 MG TAB PO SCH (09:12)
[2021-12-10] MEDS: Senokot S 8.6-50 MG TAB PO SCH ×2 (09:14→20:57)
[2021-12-10] MEDS: Polyethylene Glycol 3350 17 GM Packet PO SCH (09:14)
[2021-12-10] MEDS: Aspirin 81 mg Enteric Coated Tablet PO SCH (09:15)
[2021-12-10] MEDS: Insulin Regular 300 UNITS/3 ML VIAL SC PRN (13:34)
[2021-12-11] MEDS: Acetaminophen 325 MG TAB PO SCH ×4 (05:39→21:47)
[2021-12-11] MEDS: Ibuprofen 800 MG TAB PO SCH ×3 (05:39→21:46)
[2021-12-11] MEDS: Ferrous Sulfate 325 MG TAB PO SCH ×2 (09:26→20:39)
[2021-12-11] MEDS: Saccharomyces boulardii 250 MG CAP PO SCH (09:26)
[2021-12-11] MEDS: Famotidine 20 MG TAB PO SCH ×2 (09:27→20:39)
[2021-12-11] MEDS: Aspirin 81 mg Enteric Coated Tablet PO SCH (09:27)
[2021-12-11] MEDS: Gabapentin 100 MG CAP PO SCH ×3 (09:27→20:40)
[2021-12-11] MEDS: Ascorbic Acid 500 mg Chewable Tablet PO SCH ×2 (09:31→20:39)
[2021-12-11] MEDS: Losartan 25 MG TAB PO SCH (09:31)
[2021-12-11] MEDS: Enoxaparin Sodium 40 MG/0.4 ML SYRINGE SC SCH (09:32)
[2021-12-11] MEDS: Atorvastatin Calcium 40 MG TAB PO SCH (09:32)
[2021-12-11] MEDS: Senokot S 8.6-50 MG TAB PO SCH ×2 (09:40→20:40)
[2021-12-11] MEDS: Polyethylene Glycol 3350 17 GM Packet PO SCH (09:40)
[2021-12-11] MEDS ORDERED: Acetaminophen 325 MG TAB ONE (16:23)
[2021-12-12] MEDS: Acetaminophen 325 MG TAB PO SCH ×4 (06:48→20:22)
[2021-12-12] MEDS: Ibuprofen 800 MG TAB PO SCH ×3 (06:48→20:23)
[2021-12-12] MEDS: Senokot S 8.6-50 MG TAB PO SCH ×2 (09:33→20:24)
[2021-12-12] MEDS: Enoxaparin Sodium 40 MG/0.4 ML SYRINGE SC SCH (09:33)
[2021-12-12] MEDS: Polyethylene Glycol 3350 17 GM Packet PO SCH (09:33)
[2021-12-12] MEDS: Ascorbic Acid 500 mg Chewable Tablet PO SCH ×2 (09:34→20:22)
[2021-12-12] MEDS: Ferrous Sulfate 325 MG TAB PO SCH ×2 (09:34→20:24)
[2021-12-12] MEDS: Saccharomyces boulardii 250 MG CAP PO SCH (09:34)
[2021-12-12] MEDS: Famotidine 20 MG TAB PO SCH ×2 (09:34→20:23)
[2021-12-12] MEDS: Atorvastatin Calcium 40 MG TAB PO SCH (09:34)
[2021-12-12] MEDS: Losartan 25 MG TAB PO SCH (09:34)
[2021-12-12] MEDS: Aspirin 81 mg Enteric Coated Tablet PO SCH (09:34)
[2021-12-12] MEDS: Gabapentin 100 MG CAP PO SCH ×3 (09:35→20:23)
[2021-12-13] MEDS: Acetaminophen 325 MG TAB PO SCH ×4 (05:27→20:26)
[2021-12-13] MEDS: Ibuprofen 800 MG TAB PO SCH ×3 (05:28→20:26)
[2021-12-13] MEDS: Ascorbic Acid 500 mg Chewable Tablet PO SCH ×2 (08:41→20:27)
[2021-12-13] MEDS: Saccharomyces boulardii 250 MG CAP PO SCH (08:41)
[2021-12-13] MEDS: Senokot S 8.6-50 MG TAB PO SCH ×2 (08:41→22:36)
[2021-12-13] MEDS: Famotidine 20 MG TAB PO SCH ×2 (08:41→20:27)
[2021-12-13] MEDS: Aspirin 81 mg Enteric Coated Tablet PO SCH (08:41)
[2021-12-13] MEDS: Atorvastatin Calcium 40 MG TAB PO SCH (08:41)
[2021-12-13] MEDS: Gabapentin 100 MG CAP PO SCH ×3 (08:41→20:27)
[2021-12-13] MEDS: Ferrous Sulfate 325 MG TAB PO SCH ×2 (08:41→20:27)
[2021-12-13] MEDS: Polyethylene Glycol 3350 17 GM Packet PO SCH (08:42)
[2021-12-13] MEDS: Losartan 25 MG TAB PO SCH (08:42)
[2021-12-13] MEDS: Enoxaparin Sodium 40 MG/0.4 ML SYRINGE SC SCH (08:42)
[2021-12-14] MEDS: Acetaminophen 325 MG TAB PO SCH ×4 (05:38→20:32)
[2021-12-14] MEDS: Ibuprofen 800 MG TAB PO SCH ×3 (05:39→20:32)
[2021-12-14] MEDS: Senokot S 8.6-50 MG TAB PO SCH ×2 (08:08→20:29)
[2021-12-14] MEDS: Ascorbic Acid 500 mg Chewable Tablet PO SCH ×2 (08:08→20:28)
[2021-12-14] MEDS: Ferrous Sulfate 325 MG TAB PO SCH ×2 (08:08→20:28)
[2021-12-14] MEDS: Aspirin 81 mg Enteric Coated Tablet PO SCH (08:08)
[2021-12-14] MEDS: Losartan 25 MG TAB PO SCH (08:09)
[2021-12-14] MEDS: Enoxaparin Sodium 40 MG/0.4 ML SYRINGE SC SCH (08:10)
[2021-12-14] MEDS: Atorvastatin Calcium 40 MG TAB PO SCH (08:10)
[2021-12-14] MEDS: Famotidine 20 MG TAB PO SCH ×2 (08:10→20:28)
[2021-12-14] MEDS: Saccharomyces boulardii 250 MG CAP PO SCH (08:10)
[2021-12-14] MEDS: Polyethylene Glycol 3350 17 GM Packet PO SCH (08:15)
[2021-12-14] MEDS: Gabapentin 100 MG CAP PO SCH ×3 (08:18→20:28)
[2021-12-15] MEDS: Acetaminophen 325 MG TAB PO SCH ×2 (04:52→09:29)
[2021-12-15] MEDS: Ibuprofen 800 MG TAB PO SCH (04:52)
[2021-12-15] MEDS: Losartan 25 MG TAB PO SCH (09:29)
[2021-12-15] MEDS: Ascorbic Acid 500 mg Chewable Tablet PO SCH (09:30)
[2021-12-15] MEDS: Gabapentin 100 MG CAP PO SCH (09:30)
[2021-12-15] MEDS: Ferrous Sulfate 325 MG TAB PO SCH (09:30)
[2021-12-15] MEDS: Aspirin 81 mg Enteric Coated Tablet PO SCH (09:30)
[2021-12-15] MEDS: Saccharomyces boulardii 250 MG CAP PO SCH (09:30)
[2021-12-15] MEDS: Atorvastatin Calcium 40 MG TAB PO SCH (09:30)
[2021-12-15] MEDS: Enoxaparin Sodium 40 MG/0.4 ML SYRINGE SC SCH (09:31)
[2021-12-15] MEDS: Famotidine 20 MG TAB PO SCH (09:33)
[2021-12-15] MEDS: Polyethylene Glycol 3350 17 GM Packet PO SCH (09:34)
[2021-12-15] MEDS: Senokot S 8.6-50 MG TAB PO SCH (09:34)
[2021-12-15 12:53] VITALS: BP 146/88; TEMP 98.1
== END 2021-12-15 13:45 | disposition home or self-care (01) | DRG 562 ==
LOC: ERS 12:59 → SURG A 16:34
PROVIDERS: ADMIT Surgery; ATTEND Surgery
PROC: 8E0ZXY6 Isolation (ICD-10-PCS; principal; 2021-12-13)
DX: S42.251A Displaced fracture of greater tuberosity of right humerus, initial encounter for closed fracture (principal); U07.1 COVID-19; S42.212A Unspecified displaced fracture of surgical neck of left humerus, initial encounter for closed fracture; N39.0 Urinary tract infection, site not specified; D62 Acute posthemorrhagic anemia; Z23 Encounter for immunization; C50.919 Malignant neoplasm of unspecified site of unspecified female breast; E11.9 Type 2 diabetes mellitus without complications; I10 Essential (primary) hypertension; E78.5 Hyperlipidemia, unspecified; Z60.2 Problems related to living alone; S40.012A Contusion of left shoulder, initial encounter; S40.022A Contusion of left upper arm, initial encounter; W18.30XA Fall on same level, unspecified, initial encounter; R45.87 Impulsiveness; Z88.0 Allergy status to penicillin; Y92.009 Unspecified place in unspecified non-institutional (private) residence as the place of occurrence of the external cause
CPT/HCPCS: 36415; 36416; 70450; 71045; 72125; 72170; 74177; 80048; 80053; 81001; 82550; 83735; 84100; 85014; 85018; 85025; 87077; 87086; 87186; 90471; 90715; 93005; J0696; J1650; J1815; J3490; Q9966; U0002; U0003; U0005

== ENCOUNTER 2024-04-18 17:59 | Emergency (ER) | payer MEDICARE ==
[2024-04-18] MEDS ORDERED: Ketorolac Tromethamine 30 MG (1 mL) VIAL ONE (18:24)
[2024-04-18] MEDS ORDERED: Morphine 4 MG/ML VIAL ONE ×2 (20:56→22:03)
[2024-04-18] MEDS ORDERED: Ondansetron PF 4 MG/2 ML Vial ONE (22:03)
[2024-04-23 12:20] LABS: Red Blood Cell (RBC) Count 3.06 mill/uL (4.20-5.40)
[2024-04-23 12:21] LABS: #Basophils 0.01 10x3/uL (0.0-0.2); #Eosinophils 0.04 10x3/uL (0.0-0.7); #Monocytes 0.54 10x3/uL (0.11-0.59); #Neutrophils 4.08 10x3/uL (1.40-6.50); %Basophils 0.2 % (0.0-1.0); %Eosinophils 0.8 % (0.0-10.0); %Lymphocytes 11.3 % (21.0-51.0); %Monocytes 10.2 % (0.0-10.0); %Neutrophils 76.9 % (42.0-75.0); ALT (SGPT) 10 U/L (8-55); AST (SGOT) 14 U/L (5-34); Alkaline Phosphatase 62 U/L (40-110); Anion Gap 18 mmol/L (10-20); BUN (Urea Nitrogen) 18 mg/dL (9.8-20.1); Bilirubin, Total 0.5 mg/dL (0.2-1.2); Calc. Creatinine Clearance 0 mL/min (70-130); Calcium 11.4 mg/dL (7.8-10.44); Carbon Dioxide 23 mmol/L (23-31); Chloride 105 mmol/L (98-107); Estimated GFR 50; Globulin 4.1 g/dL (2.4-3.5); Glucose 118 mg/dL (83-110); Hematocrit 29.3 % (36.0-47.0); Hemoglobin 9.1 g/dL (12.0-16.0); Mean Corpuscular HGB CONC 31.1 g/dL (32.0-36.0); Mean Corpuscular Hemoglobin 29.7 pg (27.0-31.0); Mean Corpuscular Volume 95.8 fL (78.0-98.0); Platelet Count 128 10x3/uL (130-400); Potassium 4.4 mmol/L (3.5-5.1); Protein, Total 8.1 g/dL (5.8-8.1); RBC Distribution Width 19.2 % (11.5-14.5); Sodium 142 mmol/L (136-145)
[2024-04-23 12:24] LABS: Bilirubin Negative (Negative); Blood, Urine Negative (Negative); Clarity Turbid (Clear); Glucose, Urine (Dipstick) Negative (Negative); Ketone, Urine Negative (Negative); Leukocyte 500 Leu/uL (Negative); Nitrite Negative (Negative); Protein, Urine (Dipstick) 30 mg/dL (Neg-Trace); Renal Epithelial 0-3 HPF (None Seen); Specific Gravity, Urine 1.033 (1.002-1.036); Transitional Epithelial 0-3 HPF (None Seen); Urobilinogen Normal mg/dL (Less than 2); WBC/HPF Greater than 50 HPF (0-3); pH, Urine 5.5 (5.0-9.0)
[2024-04-23 12:25] LABS: Bacteria/HPF 4+ HPF (None Seen); Calcium Oxalate Crystals 4+ HPF (None Seen)
== END 2024-04-19 04:27 | disposition home or self-care (01) ==
LOC: ERS 17:59
DX: M54.50 Low back pain, unspecified (principal); N39.0 Urinary tract infection, site not specified
CPT/HCPCS: 80053; 85025; 96374; 96375; 96376; 99284; J1885; J2272; J2405; 81003; 81015

== ENCOUNTER 2024-04-19 15:37 | Emergency (ER) | payer MEDICARE ==
[~2024-04-19 15:37] MED LIST changes: -ISOVUE-370 76%-LOCM 1 ML ONE; +Iopamidol-370 76% 500 ML MDV (1 ML CHARGE) ONE
[2024-04-19] MEDS ORDERED: Morphine 4 MG/ML VIAL ONE (15:48)
[2024-04-19] MEDS ORDERED: Ondansetron PF 4 MG/2 ML Vial ONE (15:48)
[2024-04-20 15:06] LABS: ALT (SGPT) 9 U/L (8-55); AST (SGOT) 17 U/L (5-34); Albumin 3.9 g/dL (3.4-4.8); Alkaline Phosphatase 58 U/L (40-110); Anion Gap 20 mmol/L (10-20); BUN (Urea Nitrogen) 23 mg/dL (9.8-20.1); Bilirubin, Total 0.3 mg/dL (0.2-1.2); Calc. Creatinine Clearance 0 mL/min (70-130); Calcium 10.9 mg/dL (7.8-10.44); Carbon Dioxide 24 mmol/L (23-31); Chloride 105 mmol/L (98-107); Estimated GFR 45; Globulin 3.5 g/dL (2.4-3.5); Glucose 97 mg/dL (83-110); Potassium 4.8 mmol/L (3.5-5.1); Protein, Total 7.4 g/dL (5.8-8.1); Sodium 144 mmol/L (136-145)
[2024-04-20 15:07] LABS: Lactic Acid 1.24 mmol/L (0.5-2.2)
[2024-04-20 15:25] LABS: #Basophils Less than 0.03 10x3/uL (0.0-0.2); %Basophils 0.2 % (0.0-1.0); %Eosinophils 0.7 % (0.0-10.0); %Lymphocytes 12.1 % (21.0-51.0); %Monocytes 8.3 % (0.0-10.0); %Neutrophils 78.5 % (42.0-75.0); Hemoglobin 9.6 g/dL (12.0-16.0); Mean Corpuscular Hemoglobin 29.6 pg (27.0-31.0); Mean Corpuscular Volume 95.7 fL (78.0-98.0); Mean Platelet Volume 12.6 fL (7.4-10.4); Platelet Count 146 10x3/uL (130-400); RBC Distribution Width 18.8 % (11.5-14.5); Red Blood Cell (RBC) Count 3.24 mill/uL (4.20-5.40)
[2024-04-24 12:27] LABS: Bilirubin Negative (Negative); Blood, Urine Trace (Negative); Clarity Turbid (Clear); Glucose, Urine (Dipstick) Negative (Negative); Ketone, Urine Negative (Negative); Leukocyte 500 Leu/uL (Negative); Nitrite 2+ (Negative); Protein, Urine (Dipstick) 20 mg/dL (Neg-Trace); RBC/HPF 0-3 HPF (0-3); Specific Gravity, Urine 1.034 (1.002-1.036); Squamous Epithelial 0-3 HPF (0-3); Urobilinogen Normal mg/dL (Less than 2); WBC/HPF Greater than 50 HPF (0-3); pH, Urine 5.5 (5.0-9.0)
[2024-04-24 12:28] LABS: Bacteria/HPF 1+ HPF (None Seen); Transitional Epithelial 0-3 HPF (None Seen)
== END 2024-04-19 20:54 | disposition home or self-care (01) ==
LOC: ERS 15:37
DX: S30.810A Abrasion of lower back and pelvis, initial encounter (principal); L89.151 Pressure ulcer of sacral region, stage 1; N39.0 Urinary tract infection, site not specified; E11.9 Type 2 diabetes mellitus without complications; E78.00 Pure hypercholesterolemia, unspecified; I10 Essential (primary) hypertension; Z79.84 Long term (current) use of oral hypoglycemic drugs; Z79.899 Other long term (current) drug therapy; X58.XXXA Exposure to other specified factors, initial encounter
CPT/HCPCS: 51701; 74177; 80053; 81003; 83605; 85025; 87040; 87077; 87086; 87186; 96374; 96375; 99283; J2272; J2405; Q9967

== ENCOUNTER 2024-04-21 01:11 | Inpatient (IN) | payer MEDICARE ==
[2024-04-21] MEDS ORDERED: Morphine 4 MG/ML VIAL ONE ×2 (02:35→04:27)
[2024-04-21] MEDS ORDERED: Acetaminophen 325 MG TAB PO PRN (05:45)
[2024-04-21] MEDS ORDERED: Ondansetron ODT 4 MG TAB SL PRN (05:45)
[2024-04-21] MEDS ORDERED: Ondansetron PF 4 MG/2 ML Vial IVP PRN ×2 (05:45→07:52)
[2024-04-21 06:01] LABS: Bilirubin Negative (Negative); Blood, Urine Negative (Negative); CAUTI Indications for Culture Pelvic or flank pain; Calcium Oxalate Crystals 4+ HPF (None Seen); Clarity Extra Turbid (Clear); Glucose, Urine (Dipstick) Normal (Negative); Ketone, Urine Trace mg/dL (Negative); Leukocyte 75 Leu/uL (Negative); Nitrite Negative (Negative); Protein, Urine (Dipstick) 10 mg/dL (Neg-Trace); RBC/HPF 0-3 HPF (0-3); Specific Gravity, Urine 1.021 (1.002-1.036); Urobilinogen Normal mg/dL (Less than 2); WBC/HPF 21-50 HPF (0-3)
[2024-04-21 06:07] LABS: Bacteria/HPF 1+ HPF (None Seen); Urine Culture Reflex Yes Yes
[2024-04-21] MEDS ORDERED: Calcium Carbonate 500 MG ChewTAB PO PRN (07:52)
[2024-04-21] MEDS ORDERED: Ondansetron ODT 4 MG TAB PO PRN (07:52)
[2024-04-21] MEDS ORDERED: Dextrose 50% Abboject 50 ML SYRINGE SLOW IVP PRN (08:03)
[2024-04-21] MEDS ORDERED: Glucagon 1 MG/ML KIT IM PRN (08:03)
[2024-04-21] MEDS ORDERED: Dextrose 5% in Water 1,000 ML IV PRN (08:03)
[2024-04-21 08:56] LABS: #Basophils Less than 0.03 10x3/uL (0.0-0.2); %Basophils 0.2 % (0.0-1.0); %Eosinophils 0.8 % (0.0-10.0); %Lymphocytes 14.9 % (21.0-51.0); %Monocytes 7.5 % (0.0-10.0); %Neutrophils 76.4 % (42.0-75.0); Hematocrit 27.8 % (36.0-47.0); Hemoglobin 8.3 g/dL (12.0-16.0); Mean Corpuscular HGB CONC 30.2 g/dL (32.0-36.0); Mean Corpuscular Hemoglobin 29.8 pg (27.0-31.0); Mean Corpuscular Volume 98.6 fL (78.0-98.0); Platelet Count 134 10x3/uL (130-400); RBC Distribution Width 18.4 % (11.5-14.5); Red Blood Cell (RBC) Count 2.85 mill/uL (4.20-5.40)
[2024-04-21 08:59] LABS: Anion Gap 16 mmol/L (10-20); BUN (Urea Nitrogen) 25 mg/dL (9.8-20.1); Calc. Creatinine Clearance 57 mL/min (70-130); Calcium 10.4 mg/dL (7.8-10.44); Carbon Dioxide 25 mmol/L (23-31); Chloride 102 mmol/L (98-107); Estimated GFR 61; Glucose 83 mg/dL (83-110); Potassium 4.1 mmol/L (3.5-5.1); Sodium 139 mmol/L (136-145)
[2024-04-21] MEDS ORDERED: CeleCOXIB 100 MG CAP PO SCH (09:00)
[2024-04-21] MEDS: Acetaminophen 325 MG TAB PO PRN (09:10)
[2024-04-21] MEDS: traMADol HCl 50 MG TAB PO PRN (09:10)
[2024-04-21] MEDS: Enoxaparin 40 MG (0.4 mL) SYRINGE SC SCH (09:10)
[2024-04-21] MEDS: Nitrofurantoin Monohyd/M-Cryst 100 MG CAP PO SCH (09:11)
[2024-04-21] MEDS: CeleCOXIB 100 MG CAP PO SCH ×2 (12:25→20:38)
[2024-04-21 15:01] VITALS: BMI 30.2
[2024-04-21 15:27] VITALS: BMI 29.6
[2024-04-21] MEDS: FLU (Fluad Triv) TS24-25 (65UP)/MF59C/PF 45 MCG/0.5 ML Syringe IM ONE (15:28)
[2024-04-21] MEDS: Lidocaine 4% Patch TD SCH (15:29)
[2024-04-21] MEDS: Atorvastatin Calcium 40 MG TAB PO SCH (20:37)
[2024-04-21] MEDS: Anastrozole 1 MG TAB PO SCH (20:39)
[2024-04-21] MEDS: Transdermal LIDOCAINE Patch Removal TOP SCH (20:39)
[2024-04-21] MEDS: Famotidine 20 MG TAB PO SCH (20:39)
[2024-04-22] MEDS: Senokot S 8.6-50 MG TAB PO PRN (05:05)
[2024-04-22] MEDS: Bisacodyl 10 MG SUPP PR SCH (06:15)
[2024-04-22] MEDS: Polyethylene Glycol 3350 17 GM Packet ONE (06:16)
[2024-04-22] MEDS: Polyethylene Glycol 3350 17 GM Packet PO SCH (06:16)
[2024-04-22] MEDS ORDERED: Aspirin 81 mg Enteric Coated Tablet PO SCH (09:00)
[2024-04-22 09:26] LABS: Hematocrit 27.6 % (36.0-47.0); Hemoglobin 8.6 g/dL (12.0-16.0); Mean Corpuscular HGB CONC 31.2 g/dL (32.0-36.0); Mean Corpuscular Volume 96.2 fL (78.0-98.0); Mean Platelet Volume 11.9 fL (7.4-10.4); Platelet Count 118 10x3/uL (130-400); RBC Distribution Width 17.8 % (11.5-14.5); Red Blood Cell (RBC) Count 2.87 mill/uL (4.20-5.40)
[2024-04-22 09:38] LABS: Iron 28 ug/dL (50-170); Iron Binding Capacity, Total 256 mcg/dL (265-497)
[2024-04-22 09:39] LABS: Anion Gap 16 mmol/L (10-20); BUN (Urea Nitrogen) 28 mg/dL (9.8-20.1); Calc. Creatinine Clearance 57 mL/min (70-130); Calcium 10.1 mg/dL (7.8-10.44); Carbon Dioxide 22 mmol/L (23-31); Chloride 100 mmol/L (98-107); Estimated GFR 62; Glucose 136 mg/dL (83-110); Iron 28 ug/dL (50-170); Iron Binding Capacity, Total 259 mcg/dL (265-497); Potassium 4.2 mmol/L (3.5-5.1)
[2024-04-22 09:45] LABS: Sodium 134 mmol/L (136-145)
[2024-04-22] MEDS: Aspirin 81 mg Enteric Coated Tablet PO SCH (09:51)
[2024-04-22 09:59] LABS: Ferritin 209.86 ng/mL (10-291)
[2024-04-22 10:04] LABS: Macrocytosis SLIGHT = 6-15 cells HPF (0-5); Ovalocytes SLIGHT = 2-5 cells HPF (0-1); Platelet Adequacy Comment Platelets Decreased; Polychromasia MODERATE = 3-4 cells HPF (0-2)
[2024-04-22 10:07] LABS: #Basophils Less than 0.03 10x3/uL (0.0-0.2); %Eosinophils 1.3 % (0.0-10.0); %Lymphocytes 8.4 % (21.0-51.0); %Monocytes 5.5 % (0.0-10.0); %Neutrophils 84.8 % (42.0-75.0)
[2024-04-22] MEDS: fentaNYL 12 mcg Patch TD SCH (13:13)
[2024-04-22] MEDS: LevoFLOXacin 500 mg/D5W 500 MG in Premix 1 BAG IVPB SCH (13:15)
[2024-04-22] MEDS: traMADol HCl 50 MG TAB PO PRN (14:41)
[2024-04-22] MEDS: Cyclobenzaprine 10 MG TAB PO PRN (16:41)
[2024-04-22] MEDS: Senokot S 8.6-50 MG TAB PO SCH (21:01)
[2024-04-23] MEDS: Morphine 2 MG/ML VIAL SLOW IVP PRN ×2 (05:04→14:14)
[2024-04-23 06:47] LABS: Anion Gap 14 mmol/L (10-20); BUN (Urea Nitrogen) 19 mg/dL (9.8-20.1); Calc. Creatinine Clearance 58 mL/min (70-130); Calcium 10.6 mg/dL (7.8-10.44); Carbon Dioxide 23 mmol/L (23-31); Chloride 98 mmol/L (98-107); Estimated GFR 64; Glucose 125 mg/dL (83-110); Potassium 4.2 mmol/L (3.5-5.1); Sodium 131 mmol/L (136-145)
[2024-04-23] MEDS ORDERED: glipiZIDE XL 5 mg ER.TAB PO SCH (08:00)
[2024-04-23 08:02] LABS: #Basophils Less than 0.03 10x3/uL (0.0-0.2); %Basophils 0.1 % (0.0-1.0); %Eosinophils 0.6 % (0.0-10.0); %Lymphocytes 5.2 % (21.0-51.0); %Monocytes 7.6 % (0.0-10.0); %Neutrophils 85.9 % (42.0-75.0); Hematocrit 26.5 % (36.0-47.0); Hemoglobin 8.3 g/dL (12.0-16.0); Mean Corpuscular HGB CONC 31.3 g/dL (32.0-36.0); Mean Corpuscular Hemoglobin 29.4 pg (27.0-31.0); Mean Platelet Volume 12.5 fL (7.4-10.4); Platelet Count 118 10x3/uL (130-400); RBC Distribution Width 18.3 % (11.5-14.5); Red Blood Cell (RBC) Count 2.82 mill/uL (4.20-5.40)
[2024-04-23] MEDS: glipiZIDE XL 5 mg ER.TAB PO SCH (08:53)
[2024-04-23 09:25] LABS: Ovalocytes SLIGHT = 2-5 cells HPF (0-1); Platelet Adequacy Comment Platelets Decreased; Polychromasia SLIGHT = 2-3 cells HPF (0-2)
[2024-04-23] MEDS: diphenhydrAMINE 25 MG CAP PO PRN (14:20)
[2024-04-23] MEDS: Lorazepam 2 MG/ML VIAL SLOW IVP SCH (14:20)
[2024-04-23] MEDS: LevoFLOXacin 750 mg/D5W 750 MG in Premix 1 BAG IVPB SCH (21:40)
[2024-04-24 06:50] LABS: #Basophils Less than 0.03 10x3/uL (0.0-0.2); %Basophils 0.1 % (0.0-1.0); %Eosinophils 0.3 % (0.0-10.0); %Lymphocytes 5.4 % (21.0-51.0); %Monocytes 10.4 % (0.0-10.0); %Neutrophils 82.9 % (42.0-75.0); Hematocrit 29.1 % (36.0-47.0); Hemoglobin 8.9 g/dL (12.0-16.0); Mean Corpuscular HGB CONC 30.6 g/dL (32.0-36.0); Mean Corpuscular Hemoglobin 28.6 pg (27.0-31.0); Mean Corpuscular Volume 93.6 fL (78.0-98.0); Mean Platelet Volume 12.2 fL (7.4-10.4); Platelet Count 129 10x3/uL (130-400); RBC Distribution Width 18.6 % (11.5-14.5); Red Blood Cell (RBC) Count 3.11 mill/uL (4.20-5.40)
[2024-04-24 07:04] LABS: Anion Gap 17 mmol/L (10-20); BUN (Urea Nitrogen) 25 mg/dL (9.8-20.1); Calc. Creatinine Clearance 46 mL/min (70-130); Calcium 10.9 mg/dL (7.8-10.44); Carbon Dioxide 22 mmol/L (23-31); Chloride 97 mmol/L (98-107); Estimated GFR 48; Glucose 142 mg/dL (83-110); Potassium 4.4 mmol/L (3.5-5.1); Sodium 132 mmol/L (136-145)
[2024-04-25] MEDS: Famotidine 20 MG TAB PO SCH (09:16)
[2024-04-25] MEDS ORDERED: fentaNYL 50 mcg/mL 1 mL Vial ONE (12:38)
[2024-04-25] MEDS ORDERED: Glycerin Adult Supp. (12 ct jar) RC PRN (16:18)
[2024-04-25] MEDS: Morphine 2 MG/ML VIAL SLOW IVP PRN (16:30)
[2024-04-25] MEDS: Fleet Saline Enema 133 ML BOT PR SCH (16:32)
[2024-04-25] MEDS: Acetaminophen 500 MG TAB PO SCH (17:44)
[2024-04-25] MEDS: Sodium Chloride 0.9% 500 ML IV SCH (21:28)
[2024-04-25] MEDS: Insulin Lispro 100 UNIT/ML 10 ML VIAL SC PRN (23:29)
[2024-04-26] MEDS: Sodium Chloride 0.9% 1,000 ML IV SCH (01:53)
[2024-04-26 02:23] LABS: #Basophils Less than 0.03 10x3/uL (0.0-0.2); %Basophils 0.2 % (0.0-1.0); %Eosinophils 0.3 % (0.0-10.0); %Lymphocytes 6.6 % (21.0-51.0); %Monocytes 4.1 % (0.0-10.0); %Neutrophils 88.1 % (42.0-75.0); Hematocrit 25.3 % (36.0-47.0); Mean Corpuscular HGB CONC 31.6 g/dL (32.0-36.0); Mean Corpuscular Hemoglobin 29.5 pg (27.0-31.0); Mean Corpuscular Volume 93.4 fL (78.0-98.0); Mean Platelet Volume 12.6 fL (7.4-10.4); Platelet Count 147 10x3/uL (130-400); RBC Distribution Width 18.6 % (11.5-14.5); Red Blood Cell (RBC) Count 2.71 mill/uL (4.20-5.40)
[2024-04-26 02:50] LABS: ALT (SGPT) 13 U/L (8-55); AST (SGOT) 26 U/L (5-34); Albumin 2.5 g/dL (3.4-4.8); Alkaline Phosphatase 56 U/L (40-110); Anion Gap 19 mmol/L (10-20); BUN (Urea Nitrogen) 41 mg/dL (9.8-20.1); Bilirubin, Total 0.2 mg/dL (0.2-1.2); Calc. Creatinine Clearance 41 mL/min (70-130); Carbon Dioxide 18 mmol/L (23-31); Chloride 102 mmol/L (98-107); Estimated GFR 42; Globulin 4.4 g/dL (2.4-3.5); Glucose 277 mg/dL (83-110); Protein, Total 6.9 g/dL (5.8-8.1); Sodium 134 mmol/L (136-145)
[2024-04-26] MEDS: Insulin Lispro 100 UNIT/ML 10 ML VIAL SC PRN (06:24)
[2024-04-26] MEDS ORDERED: Polyethylene Glycol 3350 17 GM Packet PO PRN (20:18)
[2024-04-26] MEDS: Polyethylene Glycol 3350 17 GM Packet PO SCH (20:39)
[2024-04-27] MEDS: oxyCODONE 5 MG TAB PO PRN (02:34)
[2024-04-27] MEDS: Polyethylene Glycol 3350 17 GM Packet PO SCH (08:09)
[2024-04-27 17:18] VITALS: BP 102/62; TEMP 97.3
== END 2024-04-27 17:30 | disposition home or self-care (01) | DRG 543 ==
LOC: ERS 01:11 → SURG B 05:58
PROVIDERS: ADMIT Student in an Organized Health Care Education/Training Program; ATTEND Hospitalist
PROC: 3E02340 Introduction of Influenza Vaccine into Muscle, Percutaneous Approach (ICD-10-PCS; 2024-04-21)
PROC: 0DCP7ZZ Extirpation of Matter from Rectum, Via Natural or Artificial Opening (ICD-10-PCS; principal; 2024-04-26)
DX: M48.54XA Collapsed vertebra, not elsewhere classified, thoracic region, initial encounter for fracture (principal); N30.00 Acute cystitis without hematuria; I10 Essential (primary) hypertension; E11.40 Type 2 diabetes mellitus with diabetic neuropathy, unspecified; M48.56XA Collapsed vertebra, not elsewhere classified, lumbar region, initial encounter for fracture; D63.8 Anemia in other chronic diseases classified elsewhere; B96.20 Unspecified Escherichia coli [E. coli] as the cause of diseases classified elsewhere; M48.55XA Collapsed vertebra, not elsewhere classified, thoracolumbar region, initial encounter for fracture; K56.41 Fecal impaction; Z88.0 Allergy status to penicillin; Z79.899 Other long term (current) drug therapy; Z79.82 Long term (current) use of aspirin; Z79.84 Long term (current) use of oral hypoglycemic drugs; Z86.73 Personal history of transient ischemic attack (TIA), and cerebral infarction without residual deficits; Z23 Encounter for immunization
CPT/HCPCS: 36415; 36416; 72148; 80048; 80053; 81001; 82306; 82607; 82728; 82746; 83540; 83550; 83605; 85025; 87040; 87086; 96374; 96376; J1650; J1815; J1956; J2060; J2272; J3010; J7030

== ENCOUNTER 2024-05-19 14:06 | Inpatient (IN) | payer MEDICARE ==
[2024-05-19 16:44] LABS: #Basophils 0.03 10x3/uL (0.0-0.2); %Basophils 0.2 % (0.0-1.0); %Eosinophils 0.3 % (0.0-10.0); %Lymphocytes 3.3 % (21.0-51.0); %Neutrophils 90.1 % (42.0-75.0); Hematocrit 30.1 % (36.0-47.0); Hemoglobin 9.2 g/dL (12.0-16.0); Mean Corpuscular HGB CONC 30.6 g/dL (32.0-36.0); Mean Corpuscular Hemoglobin 28.8 pg (27.0-31.0); Mean Corpuscular Volume 94.4 fL (78.0-98.0); Mean Platelet Volume 12.6 fL (7.4-10.4); Platelet Count 200 10x3/uL (130-400); RBC Distribution Width 18.6 % (11.5-14.5); Red Blood Cell (RBC) Count 3.19 mill/uL (4.20-5.40)
[2024-05-19 16:59] LABS: ALT (SGPT) 8 U/L (8-55); AST (SGOT) 18 U/L (5-34); Albumin 2.5 g/dL (3.4-4.8); Alkaline Phosphatase 77 U/L (40-110); Anion Gap 25 mmol/L (10-20); BUN (Urea Nitrogen) 16 mg/dL (9.8-20.1); Bilirubin, Total 0.8 mg/dL (0.2-1.2); Calc. Creatinine Clearance 0 mL/min (70-130); Calcium 10.7 mg/dL (7.8-10.44); Carbon Dioxide 21 mmol/L (23-31); Chloride 96 mmol/L (98-107); Estimated GFR 70; Globulin 5.2 g/dL (2.4-3.5); Glucose 143 mg/dL (83-110); Potassium 4.5 mmol/L (3.5-5.1); Protein, Total 7.7 g/dL (5.8-8.1); Sodium 137 mmol/L (136-145)
[2024-05-19] MEDS ORDERED: LevoFLOXacin 750 mg/D5W 150 ml Premix Bag ONE (17:02)
[2024-05-19] MEDS ORDERED: Morphine 4 MG/ML VIAL ONE (17:04)
[2024-05-19 18:55] LABS: Bacteria/HPF 4+ HPF (None Seen); Bilirubin Negative (Negative); Blood, Urine 2+ (Negative); CAUTI Indications for Culture Acute Hematuria; Clarity Extra Turbid (Clear); Glucose, Urine (Dipstick) Normal (Negative); Ketone, Urine Negative (Negative); Leukocyte 500 Leu/uL (Negative); Nitrite Negative (Negative); Protein, Urine (Dipstick) 100 mg/dL (Neg-Trace); RBC/HPF 21-50 HPF (0-3); Specific Gravity, Urine 1.026 (1.002-1.036); Squamous Epithelial None Seen HPF (0-3); Urobilinogen Normal mg/dL (Less than 2); WBC/HPF Greater than 50 HPF (0-3); Yeast-Budding 2+ HPF (None Seen)
[2024-05-19 18:57] LABS: Urine Culture Reflex Yes Yes
[2024-05-19] MEDS ORDERED: Dextrose 5% in Water 1,000 ML IV PRN (19:05)
[2024-05-19] MEDS ORDERED: Bisacodyl 10 MG SUPP PR PRN (19:05)
[2024-05-19] MEDS ORDERED: Glucagon 1 MG/ML KIT IM PRN (19:05)
[2024-05-19] MEDS ORDERED: Acetaminophen 650 MG Suppository PR PRN (19:05)
[2024-05-19] MEDS ORDERED: Dextrose 50% Abboject 50 ML SYRINGE SLOW IVP PRN (19:05)
[2024-05-19] MEDS ORDERED: Ipratropium Bromide 2.5 ml Neb NEB PRN (19:14)
[2024-05-19] MEDS ORDERED: Vancomycin 1 GM/200 ML (FROZEN) BAG ONE (19:34)
[2024-05-19 19:38] LABS: Lactic Acid 2.76 mmol/L (0.5-2.2)
[2024-05-19] MEDS: Chlorhexidine Gluconate 15 ML UDCUP SSP SCH (22:24)
[2024-05-19] MEDS: Atorvastatin Calcium 40 MG TAB PO SCH (22:24)
[2024-05-19] MEDS: Anastrozole 1 MG TAB PO SCH (22:24)
[2024-05-19] MEDS: Sodium Chloride 0.9% 1,000 ML IV SCH (22:25)
[2024-05-19] MEDS: Ipratropium/Albuterol 3 ML NEB NEB SCH (22:40)
[2024-05-20] MEDS: Ketorolac Tromethamine 30 MG (1 mL) VIAL IVP PRN (00:53)
[2024-05-20 01:29] VITALS: BMI 22.1
[2024-05-20 03:25] LABS: #Basophils Less than 0.03 10x3/uL (0.0-0.2); #Eosinophils Less than 0.03 10x3/uL (0.0-0.7); %Basophils 0.1 % (0.0-1.0); %Eosinophils 0.2 % (0.0-10.0); %Lymphocytes 3.7 % (21.0-51.0); %Monocytes 7.2 % (0.0-10.0); %Neutrophils 88.3 % (42.0-75.0); Hematocrit 24.7 % (36.0-47.0); Hemoglobin 7.7 g/dL (12.0-16.0); Mean Corpuscular HGB CONC 31.2 g/dL (32.0-36.0); Mean Corpuscular Hemoglobin 28.6 pg (27.0-31.0); Mean Corpuscular Volume 91.8 fL (78.0-98.0); Mean Platelet Volume 11.7 fL (7.4-10.4); Platelet Count 156 10x3/uL (130-400); RBC Distribution Width 18.5 % (11.5-14.5); Red Blood Cell (RBC) Count 2.69 mill/uL (4.20-5.40)
[2024-05-20 03:46] LABS: Anion Gap 18 mmol/L (10-20); BUN (Urea Nitrogen) 22 mg/dL (9.8-20.1); Calc. Creatinine Clearance 48 mL/min (70-130); Calcium 9.1 mg/dL (7.8-10.44); Carbon Dioxide 21 mmol/L (23-31); Chloride 101 mmol/L (98-107); Estimated GFR 71; Glucose 127 mg/dL (83-110); Potassium 4.3 mmol/L (3.5-5.1); Sodium 136 mmol/L (136-145)
[2024-05-20 03:48] LABS: Vancomycin, Random 15.7 ug/mL (See Comment)
[2024-05-20] MEDS: Ascorbic Acid 500 mg Chewable Tablet PO SCH (08:46)
[2024-05-20] MEDS: Enoxaparin 40 MG (0.4 mL) SYRINGE SC SCH (08:46)
[2024-05-20] MEDS: Zinc Sulfate 220 MG CAP PO SCH (08:46)
[2024-05-20] MEDS: Multivit, Therapeutic 1 TAB PO SCH (08:46)
[2024-05-20] MEDS: DULoxetine 30 MG CAP PO SCH (08:47)
[2024-05-20] MEDS: Aspirin 81 mg Enteric Coated Tablet PO SCH (08:47)
[2024-05-20] MEDS ORDERED: Aspirin 81 mg Enteric Coated Tablet PO SCH (09:00)
[2024-05-20] MEDS ORDERED: Vancomycin 1 GM in Sodium Chloride 0.9% 250 ML 300 ML IVPB SCH (09:00)
[2024-05-20 12:02] LABS: Hematocrit 23.5 % (36.0-47.0); Hemoglobin 7.3 g/dL (12.0-16.0)
[2024-05-20] MEDS: VANCOMYCIN 1.25 GM/250 ML BAG 1.25 GM in Premix 1 BAG IVPB SCH (14:32)
[2024-05-20] MEDS ORDERED: Vancomycin (BATCH) 1.25 GM in Premix 1 BAG IVPB SCH (16:00)
[2024-05-20] MEDS: LevoFLOXacin 750 mg/D5W 750 MG in Premix 1 BAG IVPB SCH (16:43)
[2024-05-21] MEDS: Dextrose 5%-Lactated Ringers 1,000 ML IV SCH (08:00)
[2024-05-21 08:39] LABS: Hematocrit 23.7 % (36.0-47.0); Hemoglobin 7.2 g/dL (12.0-16.0); Mean Corpuscular HGB CONC 30.4 g/dL (32.0-36.0); Mean Corpuscular Hemoglobin 28.5 pg (27.0-31.0); Mean Corpuscular Volume 93.7 fL (78.0-98.0); Mean Platelet Volume 12.1 fL (7.4-10.4); Platelet Count 148 10x3/uL (130-400); Red Blood Cell (RBC) Count 2.53 mill/uL (4.20-5.40)
[2024-05-21 08:54] LABS: Anion Gap 17 mmol/L (10-20); BUN (Urea Nitrogen) 19 mg/dL (9.8-20.1); Calc. Creatinine Clearance 57 mL/min (70-130); Calcium 9.7 mg/dL (7.8-10.44); Carbon Dioxide 21 mmol/L (23-31); Chloride 106 mmol/L (98-107); Estimated GFR 88; Glucose 82 mg/dL (83-110); Potassium 3.9 mmol/L (3.5-5.1); Sodium 140 mmol/L (136-145)
[2024-05-21] MEDS: Vancomycin 1 GM in Premix 1 BAG IVPB SCH (09:26)
[2024-05-21] MEDS: ALPRAZolam 0.25 MG TAB PO PRN (14:23)
[2024-05-21] MEDS: Acetaminophen 325 MG TAB PO PRN (14:23)
[2024-05-21] MEDS: Fluconazole 100 MG TAB PO SCH (14:23)
[2024-05-21 14:45] VITALS: BMI 22.1
[2024-05-21] MEDS: LevoFLOXacin 750 mg/D5W 750 MG in Premix 1 BAG IVPB SCH (17:43)
[2024-05-22 03:57] LABS: Hematocrit 24.1 % (36.0-47.0); Hemoglobin 7.2 g/dL (12.0-16.0); Mean Corpuscular HGB CONC 29.9 g/dL (32.0-36.0); Mean Corpuscular Hemoglobin 28.2 pg (27.0-31.0); Mean Corpuscular Volume 94.5 fL (78.0-98.0); Mean Platelet Volume 11.7 fL (7.4-10.4); Platelet Count 158 10x3/uL (130-400); RBC Distribution Width 19.7 % (11.5-14.5); Red Blood Cell (RBC) Count 2.55 mill/uL (4.20-5.40)
[2024-05-22] MEDS: Metoprolol Tartrate 5 MG (5 mL) VIAL IVP SCH (04:08)
[2024-05-22 04:15] LABS: Vancomycin, Random 13.9 ug/mL (See Comment)
[2024-05-22 04:21] LABS: Anion Gap 15 mmol/L (10-20); BUN (Urea Nitrogen) 16 mg/dL (9.8-20.1); Calc. Creatinine Clearance 58 mL/min (70-130); Calcium 9.6 mg/dL (7.8-10.44); Carbon Dioxide 22 mmol/L (23-31); Chloride 108 mmol/L (98-107); Estimated GFR 89; Glucose 84 mg/dL (83-110); Magnesium 1.6 mg/dL (1.6-2.6); Potassium 3.6 mmol/L (3.5-5.1); Sodium 141 mmol/L (136-145)
[2024-05-22] MEDS ORDERED: Digoxin 0.5 MG/2 ML AMP SLOW IVP SCH (04:30)
[2024-05-22] MEDS: Digoxin 0.5 MG/2 ML AMP SLOW IVP SCH (04:37)
[2024-05-22] MEDS: Potassium Chloride 20 MEQ TAB PO SCH ×2 (04:53→09:04)
[2024-05-22] MEDS: Morphine 2 MG/ML VIAL SLOW IVP SCH (05:06)
[2024-05-22] MEDS: Magnesium 2 GM/50 ML(in water) 2 GM in Premix 1 BAG IVPB SCH (05:12)
[2024-05-22] MEDS ORDERED: dilTIAZem 125 MG in Sodium Chloride 0.9% 100 ML IVPB SCH ×2 (05:15→05:30)
[2024-05-22] MEDS ORDERED: Amiodarone 450 MG in Dextrose 5% in Water 250 ML IVPB SCH (06:15)
[2024-05-22] MEDS: Amiodarone 150 MG, Admixture Fee 1 EACH in Dextrose 5% in Water 100 ML IVPB SCH (06:45)
[2024-05-22] MEDS: Sodium Chloride 0.9% 500 ML IV SCH (07:08)
[2024-05-22] MEDS: Fluconazole 100 MG TAB PO SCH (09:05)
[2024-05-22] MEDS ORDERED: Iopamidol 370 76% 100 ML VIAL ONE (13:53)
[2024-05-22] MEDS ORDERED: LevoFLOXacin 750 mg/D5W 750 MG in Premix 1 BAG IVPB SCH (18:00)
[2024-05-22] MEDS: Amiodarone 200 MG TAB PO SCH (20:19)
[2024-05-23] MEDS: HYDROcodone/Acetaminophen 7.5/325 mg Tablet PO PRN (05:27)
[2024-05-23] MEDS: Polyethylene Glycol 3350 17 GM Packet PO PRN (05:33)
[2024-05-23 08:20] LABS: Hematocrit 26.4 % (36.0-47.0); Hemoglobin 7.9 g/dL (12.0-16.0); Mean Corpuscular HGB CONC 29.9 g/dL (32.0-36.0); Mean Corpuscular Volume 93.6 fL (78.0-98.0); Mean Platelet Volume 11.8 fL (7.4-10.4); Platelet Count 186 10x3/uL (130-400); RBC Distribution Width 19.2 % (11.5-14.5); Red Blood Cell (RBC) Count 2.82 mill/uL (4.20-5.40)
[2024-05-23 08:32] LABS: Anion Gap 15 mmol/L (10-20); BUN (Urea Nitrogen) 11 mg/dL (9.8-20.1); Calc. Creatinine Clearance 56 mL/min (70-130); Calcium 9.9 mg/dL (7.8-10.44); Carbon Dioxide 22 mmol/L (23-31); Chloride 105 mmol/L (98-107); Estimated GFR 86; Glucose 140 mg/dL (83-110); Potassium 4.7 mmol/L (3.5-5.1); Sodium 137 mmol/L (136-145)
[2024-05-23 08:34] LABS: Iron 30 ug/dL (50-170); Iron Binding Capacity, Total 178 mcg/dL (265-497)
[2024-05-23] MEDS: Iron Sucrose Complex 250 MG in Sodium Chloride 0.9% 250 ML 250 ML IVPB SCH (10:11)
[2024-05-23] MEDS: Acetaminophen 500 MG TAB PO SCH (10:11)
[2024-05-23] MEDS: Sodium Ferric Gluconate 250 MG in Sodium Chloride 0.9% 250 ML 250 ML IVPB SCH (10:28)
[2024-05-23] MEDS: Docusate 100 MG CAP PO SCH (22:45)
[2024-05-24 04:29] LABS: #Basophils Less than 0.03 10x3/uL (0.0-0.2); %Basophils 0.3 % (0.0-1.0); %Eosinophils 1.3 % (0.0-10.0); %Lymphocytes 11.7 % (21.0-51.0); %Monocytes 9.2 % (0.0-10.0); %Neutrophils 76.7 % (42.0-75.0); Hematocrit 24.6 % (36.0-47.0); Hemoglobin 7.3 g/dL (12.0-16.0); Mean Corpuscular HGB CONC 29.7 g/dL (32.0-36.0); Mean Corpuscular Hemoglobin 28.4 pg (27.0-31.0); Mean Corpuscular Volume 95.7 fL (78.0-98.0); Mean Platelet Volume 11.9 fL (7.4-10.4); Platelet Count 166 10x3/uL (130-400); RBC Distribution Width 19.5 % (11.5-14.5); Red Blood Cell (RBC) Count 2.57 mill/uL (4.20-5.40)
[2024-05-24 04:51] LABS: Vancomycin, Random 15.3 ug/mL (See Comment)
[2024-05-24 04:54] LABS: Anion Gap 13 mmol/L (10-20); BUN (Urea Nitrogen) 10 mg/dL (9.8-20.1); Calc. Creatinine Clearance 61 mL/min (70-130); Calcium 9.7 mg/dL (7.8-10.44); Carbon Dioxide 24 mmol/L (23-31); Chloride 104 mmol/L (98-107); Estimated GFR 90; Glucose 82 mg/dL (83-110); Sodium 137 mmol/L (136-145)
[2024-05-24] MEDS ORDERED: fentaNYL 50 mcg/mL 1 mL Vial ONE ×3 (07:00→11:49)
[2024-05-24] MEDS ORDERED: Rocuronium Bromide 10 MG/ML (10ML VIAL) ONE (07:00)
[2024-05-24] MEDS ORDERED: Ondansetron PF 4 MG/2 ML Vial ONE (07:00)
[2024-05-24] MEDS ORDERED: Dexamethasone 20 MG/5 ML VIAL ONE (07:00)
[2024-05-24] MEDS ORDERED: Lidocaine 1% PF 5 ML VIAL ONE (07:00)
[2024-05-24] MEDS ORDERED: PROPOFOL 20 ML ONE (07:00)
[2024-05-24] MEDS ORDERED: KETAMINE 100 MG/ML (5ML VIAL) ONE (10:01)
[2024-05-24] MEDS ORDERED: Etomidate 40 MG (20 mL) VIAL ONE (10:01)
[2024-05-24] MEDS ORDERED: Midazolam HCl 2 mg/2 ml Vial ONE (10:04)
[2024-05-24] MEDS ORDERED: PHENYLEPHRINE-NS 100 MCG/ML 10 ML SYRINGE ONE (10:17)
[2024-05-24] MEDS ORDERED: Glycopyrrolate 0.2 MG/ML 5 ML SYRINGE ONE (10:17)
[2024-05-24] MEDS ORDERED: ePHEDrine Sulfate 50 MG/10 ML VIAL ONE (10:18)
[2024-05-24] MEDS ORDERED: Sodium Chloride 0.9% 250 ML 250 ML ONE (10:52)
[2024-05-24] MEDS: Sodium Ferric Gluconate 250 MG in Sodium Chloride 0.9% 250 ML 250 ML IVPB SCH (15:12)
[2024-05-24 17:18] LABS: Hematocrit 28.9 % (36.0-47.0); Hemoglobin 9.1 g/dL (12.0-16.0)
[2024-05-24] MEDS: Insulin Lispro 100 UNIT/ML 10 ML VIAL SC PRN (20:34)
[2024-05-25 05:14] LABS: #Basophils Less than 0.03 10x3/uL (0.0-0.2); #Eosinophils Less than 0.03 10x3/uL (0.0-0.7); %Basophils 0.2 % (0.0-1.0); %Eosinophils 0.1 % (0.0-10.0); %Lymphocytes 3.8 % (21.0-51.0); %Monocytes 3.7 % (0.0-10.0); %Neutrophils 90.4 % (42.0-75.0); Hematocrit 26.8 % (36.0-47.0); Hemoglobin 8.5 g/dL (12.0-16.0); Mean Corpuscular HGB CONC 31.7 g/dL (32.0-36.0); Mean Corpuscular Hemoglobin 29.2 pg (27.0-31.0); Mean Corpuscular Volume 92.1 fL (78.0-98.0); Platelet Count 178 10x3/uL (130-400); RBC Distribution Width 19.3 % (11.5-14.5); Red Blood Cell (RBC) Count 2.91 mill/uL (4.20-5.40)
[2024-05-25 05:30] LABS: Anion Gap 15 mmol/L (10-20); BUN (Urea Nitrogen) 15 mg/dL (9.8-20.1); Calc. Creatinine Clearance 50 mL/min (70-130); Calcium 10.1 mg/dL (7.8-10.44); Carbon Dioxide 23 mmol/L (23-31); Chloride 103 mmol/L (98-107); Estimated GFR 74; Glucose 171 mg/dL (83-110); Potassium 4.9 mmol/L (3.5-5.1); Sodium 136 mmol/L (136-145)
[2024-05-25] MEDS: Enoxaparin 40 MG (0.4 mL) SYRINGE SC SCH (08:04)
[2024-05-25] MEDS: Morphine 4 MG/ML VIAL SLOW IVP SCH (10:14)
[2024-05-25] MEDS: Morphine 4 MG/ML VIAL SLOW IVP PRN (16:13)
[2024-05-25] MEDS: Amiodarone 200 MG TAB PO SCH (20:53)
[2024-05-26 04:31] LABS: #Basophils Less than 0.03 10x3/uL (0.0-0.2); #Eosinophils Less than 0.03 10x3/uL (0.0-0.7); %Basophils 0.1 % (0.0-1.0); %Eosinophils 0.2 % (0.0-10.0); %Lymphocytes 8.8 % (21.0-51.0); %Monocytes 7.1 % (0.0-10.0); %Neutrophils 82.2 % (42.0-75.0); Hematocrit 26.9 % (36.0-47.0); Hemoglobin 8.2 g/dL (12.0-16.0); Mean Corpuscular HGB CONC 30.5 g/dL (32.0-36.0); Mean Corpuscular Hemoglobin 28.6 pg (27.0-31.0); Mean Corpuscular Volume 93.7 fL (78.0-98.0); Mean Platelet Volume 12.2 fL (7.4-10.4); Platelet Count 168 10x3/uL (130-400); RBC Distribution Width 19.1 % (11.5-14.5); Red Blood Cell (RBC) Count 2.87 mill/uL (4.20-5.40)
[2024-05-26 04:44] LABS: Anion Gap 14 mmol/L (10-20); BUN (Urea Nitrogen) 18 mg/dL (9.8-20.1); Calc. Creatinine Clearance 51 mL/min (70-130); Carbon Dioxide 24 mmol/L (23-31); Chloride 102 mmol/L (98-107); Estimated GFR 77; Glucose 103 mg/dL (83-110); Potassium 4.3 mmol/L (3.5-5.1); Sodium 136 mmol/L (136-145)
[2024-05-26 08:24] LABS: Vancomycin, Trough 14.9 ug/mL
[2024-05-26] MEDS ORDERED: Ipratropium Bromide 2.5 ml Neb NEB PRN (10:51)
[2024-05-26] MEDS ORDERED: LevoFLOXacin 750 mg/D5W 750 MG in Premix 1 BAG IVPB SCH (18:00)
[2024-05-27 03:53] LABS: Anion Gap 14 mmol/L (10-20); BUN (Urea Nitrogen) 21 mg/dL (9.8-20.1); Calc. Creatinine Clearance 45 mL/min (70-130); Carbon Dioxide 26 mmol/L (23-31); Chloride 101 mmol/L (98-107); Estimated GFR 66; Glucose 119 mg/dL (83-110); Potassium 4.4 mmol/L (3.5-5.1); Sodium 137 mmol/L (136-145)
[2024-05-27 03:54] LABS: Hematocrit 28.6 % (36.0-47.0); Mean Corpuscular HGB CONC 31.5 g/dL (32.0-36.0); Mean Corpuscular Hemoglobin 28.8 pg (27.0-31.0); Mean Corpuscular Volume 91.7 fL (78.0-98.0); Mean Platelet Volume 11.9 fL (7.4-10.4); Platelet Count 153 10x3/uL (130-400); Red Blood Cell (RBC) Count 3.12 mill/uL (4.20-5.40)
[2024-05-27 04:08] LABS: #Basophils Less than 0.03 10x3/uL (0.0-0.2); %Basophils 0.4 % (0.0-1.0); %Eosinophils 1.7 % (0.0-10.0); %Lymphocytes 13.1 % (21.0-51.0); %Monocytes 6.5 % (0.0-10.0)
[2024-05-27] MEDS: metroNIDAZOLE 500 MG TAB PO SCH (09:51)
[2024-05-27] MEDS: Sulfameth/Trimethoprim DS 800-160mg TAB PO SCH (09:51)
[2024-05-28 04:56] LABS: #Basophils Less than 0.03 10x3/uL (0.0-0.2); %Basophils 0.3 % (0.0-1.0); %Eosinophils 1.2 % (0.0-10.0); %Lymphocytes 9.2 % (21.0-51.0); %Monocytes 5.7 % (0.0-10.0); %Neutrophils 82.1 % (42.0-75.0); Hematocrit 31.5 % (36.0-47.0); Hemoglobin 9.9 g/dL (12.0-16.0); Mean Corpuscular HGB CONC 31.4 g/dL (32.0-36.0); Mean Corpuscular Hemoglobin 28.7 pg (27.0-31.0); Mean Corpuscular Volume 91.3 fL (78.0-98.0); Mean Platelet Volume 12.3 fL (7.4-10.4); Platelet Count 173 10x3/uL (130-400); RBC Distribution Width 18.8 % (11.5-14.5); Red Blood Cell (RBC) Count 3.45 mill/uL (4.20-5.40)
[2024-05-28 05:13] LABS: Anion Gap 15 mmol/L (10-20); BUN (Urea Nitrogen) 19 mg/dL (9.8-20.1); Calc. Creatinine Clearance 50 mL/min (70-130); Calcium 10.4 mg/dL (7.8-10.44); Carbon Dioxide 25 mmol/L (23-31); Chloride 103 mmol/L (98-107); Estimated GFR 74; Glucose 126 mg/dL (83-110); Potassium 4.3 mmol/L (3.5-5.1); Sodium 139 mmol/L (136-145)
[2024-05-28] MEDS: Ondansetron ODT 4 MG TAB PO PRN (10:07)
[2024-05-29 03:51] LABS: #Basophils Less than 0.03 10x3/uL (0.0-0.2); %Basophils 0.3 % (0.0-1.0); %Eosinophils 1.4 % (0.0-10.0); %Lymphocytes 11.8 % (21.0-51.0); %Neutrophils 77.3 % (42.0-75.0); Hemoglobin 9.7 g/dL (12.0-16.0); Mean Corpuscular HGB CONC 31.3 g/dL (32.0-36.0); Mean Corpuscular Hemoglobin 28.5 pg (27.0-31.0); Mean Corpuscular Volume 91.2 fL (78.0-98.0); Mean Platelet Volume 11.5 fL (7.4-10.4); Platelet Count 167 10x3/uL (130-400); RBC Distribution Width 18.9 % (11.5-14.5)
[2024-05-29 04:05] LABS: Anion Gap 15 mmol/L (10-20); BUN (Urea Nitrogen) 20 mg/dL (9.8-20.1); Calc. Creatinine Clearance 48 mL/min (70-130); Calcium 10.2 mg/dL (7.8-10.44); Carbon Dioxide 25 mmol/L (23-31); Chloride 102 mmol/L (98-107); Estimated GFR 71; Glucose 111 mg/dL (83-110); Potassium 4.3 mmol/L (3.5-5.1); Sodium 138 mmol/L (136-145)
[2024-05-29] MEDS: Amiodarone 200 MG TAB PO SCH (09:43)
[2024-05-29] MEDS ORDERED: Lorazepam 2 MG/ML VIAL SLOW IVP SCH (14:30)
[2024-05-30 03:51] LABS: #Basophils Less than 0.03 10x3/uL (0.0-0.2); %Basophils 0.3 % (0.0-1.0); %Eosinophils 1.3 % (0.0-10.0); %Lymphocytes 14.8 % (21.0-51.0); %Neutrophils 74.7 % (42.0-75.0); Hematocrit 30.7 % (36.0-47.0); Hemoglobin 9.5 g/dL (12.0-16.0); Mean Corpuscular HGB CONC 30.9 g/dL (32.0-36.0); Mean Corpuscular Hemoglobin 28.5 pg (27.0-31.0); Mean Corpuscular Volume 92.2 fL (78.0-98.0); Mean Platelet Volume 12.3 fL (7.4-10.4); Platelet Count 169 10x3/uL (130-400); RBC Distribution Width 18.7 % (11.5-14.5); Red Blood Cell (RBC) Count 3.33 mill/uL (4.20-5.40)
[2024-05-30 04:00] LABS: Anion Gap 14 mmol/L (10-20); BUN (Urea Nitrogen) 20 mg/dL (9.8-20.1); Calc. Creatinine Clearance 42 mL/min (70-130); Calcium 10.3 mg/dL (7.8-10.44); Carbon Dioxide 26 mmol/L (23-31); Chloride 101 mmol/L (98-107); Estimated GFR 61; Glucose 96 mg/dL (83-110); Potassium 4.2 mmol/L (3.5-5.1); Sodium 137 mmol/L (136-145)
[2024-05-31 04:36] LABS: #Basophils 0.03 10x3/uL (0.0-0.2); %Basophils 0.4 % (0.0-1.0); %Eosinophils 2.4 % (0.0-10.0); %Neutrophils 76.5 % (42.0-75.0); Hematocrit 31.1 % (36.0-47.0); Hemoglobin 9.5 g/dL (12.0-16.0); Mean Corpuscular HGB CONC 30.5 g/dL (32.0-36.0); Mean Corpuscular Hemoglobin 28.8 pg (27.0-31.0); Mean Corpuscular Volume 94.2 fL (78.0-98.0); Mean Platelet Volume 11.8 fL (7.4-10.4); Platelet Count 144 10x3/uL (130-400); RBC Distribution Width 18.9 % (11.5-14.5)
[2024-05-31 04:43] LABS: Calc. Creatinine Clearance 38 mL/min (70-130); Estimated GFR 53
[2024-05-31 04:44] LABS: Anion Gap 17 mmol/L (10-20); BUN (Urea Nitrogen) 18 mg/dL (9.8-20.1); Carbon Dioxide 21 mmol/L (23-31); Chloride 101 mmol/L (98-107); Glucose 91 mg/dL (83-110); Potassium 4.7 mmol/L (3.5-5.1); Sodium 134 mmol/L (136-145)
[2024-06-01 05:24] LABS: #Basophils 0.03 10x3/uL (0.0-0.2); %Basophils 0.4 % (0.0-1.0); %Eosinophils 0.7 % (0.0-10.0); %Lymphocytes 10.8 % (21.0-51.0); %Monocytes 7.9 % (0.0-10.0); %Neutrophils 79.6 % (42.0-75.0); Hemoglobin 9.4 g/dL (12.0-16.0); Mean Corpuscular HGB CONC 31.3 g/dL (32.0-36.0); Mean Corpuscular Hemoglobin 28.7 pg (27.0-31.0); Mean Corpuscular Volume 91.7 fL (78.0-98.0); Mean Platelet Volume 12.1 fL (7.4-10.4); Platelet Count 157 10x3/uL (130-400); RBC Distribution Width 18.9 % (11.5-14.5); Red Blood Cell (RBC) Count 3.27 mill/uL (4.20-5.40)
[2024-06-01 05:43] LABS: Anion Gap 13 mmol/L (10-20); BUN (Urea Nitrogen) 19 mg/dL (9.8-20.1); Calc. Creatinine Clearance 37 mL/min (70-130); Calcium 9.9 mg/dL (7.8-10.44); Carbon Dioxide 22 mmol/L (23-31); Chloride 101 mmol/L (98-107); Estimated GFR 52; Glucose 133 mg/dL (83-110); Potassium 3.6 mmol/L (3.5-5.1); Sodium 132 mmol/L (136-145)
[2024-06-02 04:59] LABS: #Basophils 0.03 10x3/uL (0.0-0.2); %Basophils 0.4 % (0.0-1.0); %Eosinophils 0.7 % (0.0-10.0); %Lymphocytes 12.5 % (21.0-51.0); %Monocytes 8.2 % (0.0-10.0); %Neutrophils 77.8 % (42.0-75.0); Hematocrit 29.7 % (36.0-47.0); Hemoglobin 9.2 g/dL (12.0-16.0); Mean Corpuscular Hemoglobin 28.5 pg (27.0-31.0); Mean Platelet Volume 11.8 fL (7.4-10.4); Platelet Count 161 10x3/uL (130-400); Red Blood Cell (RBC) Count 3.23 mill/uL (4.20-5.40)
[2024-06-02 05:38] LABS: Anion Gap 13 mmol/L (10-20); BUN (Urea Nitrogen) 16 mg/dL (9.8-20.1); Calc. Creatinine Clearance 37 mL/min (70-130); Calcium 10.1 mg/dL (7.8-10.44); Carbon Dioxide 25 mmol/L (23-31); Chloride 100 mmol/L (98-107); Estimated GFR 53; Glucose 93 mg/dL (83-110); Potassium 4.1 mmol/L (3.5-5.1); Sodium 134 mmol/L (136-145)
[2024-06-02] MEDS: Pantoprazole 40 MG DR.TAB PO SCH (09:30)
[2024-06-03 03:51] LABS: #Basophils Less than 0.03 10x3/uL (0.0-0.2); %Basophils 0.3 % (0.0-1.0); %Eosinophils 1.3 % (0.0-10.0); %Lymphocytes 14.5 % (21.0-51.0); %Monocytes 7.9 % (0.0-10.0); %Neutrophils 75.4 % (42.0-75.0); Hematocrit 30.1 % (36.0-47.0); Hemoglobin 9.3 g/dL (12.0-16.0); Mean Corpuscular HGB CONC 30.9 g/dL (32.0-36.0); Mean Corpuscular Hemoglobin 28.5 pg (27.0-31.0); Mean Corpuscular Volume 92.3 fL (78.0-98.0); Mean Platelet Volume 12.4 fL (7.4-10.4); Platelet Count 175 10x3/uL (130-400); Red Blood Cell (RBC) Count 3.26 mill/uL (4.20-5.40)
[2024-06-03 04:33] LABS: Anion Gap 16 mmol/L (10-20); BUN (Urea Nitrogen) 17 mg/dL (9.8-20.1); Calc. Creatinine Clearance 32 mL/min (70-130); Calcium 10.1 mg/dL (7.8-10.44); Carbon Dioxide 23 mmol/L (23-31); Chloride 101 mmol/L (98-107); Estimated GFR 43; Glucose 86 mg/dL (83-110); Potassium 4.5 mmol/L (3.5-5.1); Sodium 135 mmol/L (136-145)
[2024-06-03] MEDS: Ondansetron PF 4 MG/2 ML Vial IVP PRN (08:55)
[2024-06-03] MEDS: Megestrol Acetate 800 MG/20 ML UDCUP PO SCH (11:17)
[2024-06-03] MEDS: Metoclopramide 10 MG/10 ML UDCUP PO SCH (11:48)
[2024-06-04 05:32] LABS: #Basophils 0.03 10x3/uL (0.0-0.2); %Basophils 0.5 % (0.0-1.0); %Eosinophils 1.4 % (0.0-10.0); %Lymphocytes 11.9 % (21.0-51.0); %Monocytes 7.3 % (0.0-10.0); %Neutrophils 78.4 % (42.0-75.0); Hematocrit 32.4 % (36.0-47.0); Hemoglobin 10.1 g/dL (12.0-16.0); Mean Corpuscular HGB CONC 31.2 g/dL (32.0-36.0); Mean Corpuscular Hemoglobin 28.5 pg (27.0-31.0); Mean Corpuscular Volume 91.3 fL (78.0-98.0); Mean Platelet Volume 12.6 fL (7.4-10.4); Platelet Count 185 10x3/uL (130-400); RBC Distribution Width 19.4 % (11.5-14.5); Red Blood Cell (RBC) Count 3.55 mill/uL (4.20-5.40)
[2024-06-04 05:52] LABS: Anion Gap 17 mmol/L (10-20); BUN (Urea Nitrogen) 22 mg/dL (9.8-20.1); Calc. Creatinine Clearance 34 mL/min (70-130); Carbon Dioxide 20 mmol/L (23-31); Chloride 101 mmol/L (98-107); Estimated GFR 47; Glucose 113 mg/dL (83-110); Potassium 4.1 mmol/L (3.5-5.1); Sodium 134 mmol/L (136-145)
[2024-06-04] MEDS: Megestrol Acetate 800 MG/20 ML UDCUP PO SCH (08:31)
[2024-06-04] MEDS ORDERED: Iopamidol 370 76% 100 ML VIAL ONE (10:03)
[2024-06-05 04:51] LABS: #Basophils Less than 0.03 10x3/uL (0.0-0.2); %Basophils 0.3 % (0.0-1.0); %Lymphocytes 16.5 % (21.0-51.0); %Monocytes 8.6 % (0.0-10.0); %Neutrophils 73.2 % (42.0-75.0); Hematocrit 30.3 % (36.0-47.0); Hemoglobin 9.8 g/dL (12.0-16.0); Mean Corpuscular HGB CONC 32.3 g/dL (32.0-36.0); Mean Corpuscular Hemoglobin 29.3 pg (27.0-31.0); Mean Corpuscular Volume 90.7 fL (78.0-98.0); Mean Platelet Volume 12.7 fL (7.4-10.4); Platelet Count 168 10x3/uL (130-400); RBC Distribution Width 19.5 % (11.5-14.5); Red Blood Cell (RBC) Count 3.34 mill/uL (4.20-5.40)
[2024-06-05 05:04] LABS: Anion Gap 13 mmol/L (10-20); BUN (Urea Nitrogen) 20 mg/dL (9.8-20.1); Calc. Creatinine Clearance 30 mL/min (70-130); Calcium 10.2 mg/dL (7.8-10.44); Carbon Dioxide 23 mmol/L (23-31); Chloride 102 mmol/L (98-107); Estimated GFR 41; Glucose 90 mg/dL (83-110); Potassium 4.1 mmol/L (3.5-5.1); Sodium 134 mmol/L (136-145)
[2024-06-05] MEDS: Polyethylene Glycol 3350 17 GM Packet PO SCH (08:30)
[2024-06-05] MEDS: Senokot S 8.6-50 MG TAB PO SCH (08:30)
[2024-06-06 08:27] LABS: Anion Gap 16 mmol/L (10-20); BUN (Urea Nitrogen) 20 mg/dL (9.8-20.1); Calc. Creatinine Clearance 28 mL/min (70-130); Calcium 10.7 mg/dL (7.8-10.44); Carbon Dioxide 21 mmol/L (23-31); Chloride 103 mmol/L (98-107); Estimated GFR 38; Glucose 88 mg/dL (83-110); Potassium 3.9 mmol/L (3.5-5.1); Sodium 136 mmol/L (136-145)
[2024-06-06 10:06] LABS: #Basophils 0.04 10x3/uL (0.0-0.2); %Basophils 0.5 % (0.0-1.0); %Lymphocytes 16.8 % (21.0-51.0); %Monocytes 7.7 % (0.0-10.0); %Neutrophils 73.6 % (42.0-75.0); Hematocrit 29.9 % (36.0-47.0); Hemoglobin 9.4 g/dL (12.0-16.0); Mean Corpuscular HGB CONC 31.4 g/dL (32.0-36.0); Mean Corpuscular Volume 92.3 fL (78.0-98.0); Mean Platelet Volume 11.9 fL (7.4-10.4); Platelet Count 178 10x3/uL (130-400); Red Blood Cell (RBC) Count 3.24 mill/uL (4.20-5.40)
[2024-06-06] MEDS: Insulin Lispro 100 UNIT/ML 10 ML VIAL SC PRN (11:34)
[2024-06-06] MEDS: Sulfameth/Trimethoprim DS 800-160mg TAB PO SCH (21:03)
[2024-06-07] MEDS: Ketorolac Tromethamine 30 MG (1 mL) VIAL IVP SCH (04:24)
[2024-06-07 05:21] LABS: Anion Gap 13 mmol/L (10-20); BUN (Urea Nitrogen) 18 mg/dL (9.8-20.1); Calc. Creatinine Clearance 35 mL/min (70-130); Calcium 10.4 mg/dL (7.8-10.44); Carbon Dioxide 20 mmol/L (23-31); Chloride 104 mmol/L (98-107); Estimated GFR 49; Glucose 103 mg/dL (83-110); Potassium 4.1 mmol/L (3.5-5.1); Sodium 133 mmol/L (136-145)
[2024-06-07 07:35] LABS: #Basophils Less than 0.03 10x3/uL (0.0-0.2); %Basophils 0.3 % (0.0-1.0); %Eosinophils 1.8 % (0.0-10.0); %Lymphocytes 19.5 % (21.0-51.0); %Monocytes 9.3 % (0.0-10.0); %Neutrophils 68.5 % (42.0-75.0); Hematocrit 32.1 % (36.0-47.0); Hemoglobin 10.3 g/dL (12.0-16.0); Mean Corpuscular HGB CONC 32.1 g/dL (32.0-36.0); Mean Corpuscular Hemoglobin 29.3 pg (27.0-31.0); Mean Corpuscular Volume 91.5 fL (78.0-98.0); Platelet Count 139 10x3/uL (130-400); RBC Distribution Width 20.4 % (11.5-14.5); Red Blood Cell (RBC) Count 3.51 mill/uL (4.20-5.40)
[2024-06-07 08:27] VITALS: TEMP 97.7
[2024-06-07 13:43] VITALS: BP 111/73
== END 2024-06-07 13:42 | DRG 853 ==
LOC: ERS 14:06 → PCU 19:15 → MSONC 05-31 18:17
PROVIDERS: ADMIT Internal Medicine; ATTEND Family Medicine
PROC: 3E03329 Introduction of Other Anti-infective into Peripheral Vein, Percutaneous Approach (ICD-10-PCS; 2024-05-19)
PROC: 0KBP0ZZ Excision of Left Hip Muscle, Open Approach (ICD-10-PCS; principal; 2024-05-24)
PROC: 0KBN0ZZ Excision of Right Hip Muscle, Open Approach (ICD-10-PCS; 2024-05-24)
PROC: 30233N1 Transfusion of Nonautologous Red Blood Cells into Peripheral Vein, Percutaneous Approach (ICD-10-PCS; 2024-05-24)
DX: A41.9 Sepsis, unspecified organism (principal); G93.41 Metabolic encephalopathy; L89.154 Pressure ulcer of sacral region, stage 4; J69.0 Pneumonitis due to inhalation of food and vomit; J18.9 Pneumonia, unspecified organism; M48.55XA Collapsed vertebra, not elsewhere classified, thoracolumbar region, initial encounter for fracture; E87.20 Acidosis, unspecified; E11.42 Type 2 diabetes mellitus with diabetic polyneuropathy; Z51.5 Encounter for palliative care; I48.0 Paroxysmal atrial fibrillation; D50.9 Iron deficiency anemia, unspecified; E78.5 Hyperlipidemia, unspecified; Z66 Do not resuscitate; I25.10 Atherosclerotic heart disease of native coronary artery without angina pectoris; E11.22 Type 2 diabetes mellitus with diabetic chronic kidney disease; I12.9 Hypertensive chronic kidney disease with stage 1 through stage 4 chronic kidney disease, or unspecified chronic kidney disease; Z88.0 Allergy status to penicillin; Z90.89 Acquired absence of other organs; D63.1 Anemia in chronic kidney disease; F03.90 Unspecified dementia, unspecified severity, without behavioral disturbance, psychotic disturbance, mood disturbance, and anxiety; N18.2 Chronic kidney disease, stage 2 (mild); Z79.899 Other long term (current) drug therapy
CPT/HCPCS: 36415; 36416; 36430; 71045; 71275; 72195; 74177; 74230; 80048; 80053; 80202; 81001; 82728; 83540; 83550; 83605; 83735; 84145; 85025; 85027; 86850; 86900; 86901; 87040; 87070; 87077; 87086; 87186; 87205; 87428; 93005; 93010; 94640; 94760; 96361; 96374; 96375; 97139; J0282; J1100; J1160; J1650; J1756; J1815; J1885; J1956; J2250; J2270; J2272; J2405; J2704; J2916; J3010; J3370; J3475; J7050; J7070; J7620; P9016; Q0162; Q9967